=== PATIENT | female | born 1985 | race Caucasian/White ===

== ENCOUNTER 2019-09-24 08:29 | Emergency (ER) | payer BC, OTHER ==
[2019-09-24 09:20] LABS: Appearance,Urine Cloudy (Clear); Bacteria,Urine Few /hpf; Bilirubin,Urine Negative (Negative); Blood,Urine Large (Negative); Color,Urine Light Red; Glucose,Urine (UA) Negative (Negative); Ketones,Urine Negative (Negative); Leukocyte Esterase,Urine Moderate (Negative); Mucus,Urine Few /hpf; Nitrite,Urine Negative (Negative); Protein,Urine 1+ (Negative); RBC,Urine >182 /hpf (0-5); Specific Gravity,Urine 1.018 (1.001-1.035); Squamous Epithelial Cell,Urine 5 /hpf (0-4); WBC,Urine 14 /hpf (0-5)
--- NOTE | 2019-09-24 09:37 | ED ---
Female Urogenital HPI - General Chief complaint: Vaginal Bleeding Stated complaint: Possible miscarriage Time Seen by Provider: 09/24/19 08:43 Source: patient, RN notes reviewed Mode of arrival: ambulatory Limitations: no limitations - History of Present Illness Initial comments: 34-year-old female presents emergency Department with chief complaint of vaginal bleeding early . Patient states she found out she was within the last week states that she is A1 states that she believes that she is approximate 5 weeks along. She does not have a current [employer]. That she woke up with bleeding mild abdominal cramping denies any current nausea vomiting diarrhea constipation - Related Data Home Medications Medication Instructions Recorded Confirmed Multivitamins, Thera [Multivitamin 1 tab PO DAILY 10/28/16 10/29/16 (formulary)] Naproxen Sodium [Aleve] 220 mg PO Q12H PRN 10/28/16 10/29/16 Previous Rx's Medication Instructions Recorded QUEtiapine XR [SEROquel XR] 100 mg PO DAILY@1900 30 Days 11/01/16 tab.er.24h Venlafaxine HCl ER [Effexor XR] 75 mg PO DAILY 30 Days cap.er.24h 11/01/16 Allergies Allergy/AdvReac Type Severity Reaction Status Date / Time codeine Allergy Severe Itching Verified 09/24/19 08:37 latex Allergy Severe Itching Verified 09/24/19 08:37 Penicillins Allergy Severe Rash/Hives Verified 09/24/19 08:37 adhesive tape Allergy Itching Verified 09/24/19 08:37 Review of Systems ROS Statement: Those systems with pertinent positive or pertinent negative responses have been documented in the HPI. ROS Other: All systems not noted in ROS Statement are negative. Past Medical History Past Medical History: No Reported History History of Any Multi-Drug Resistant Organisms: None Reported Past Surgical History: Orthopedic Surgery Additional Past Surgical History / Comment(s): R ankle fracture, R wrist cyst removal, R wrist shattered Past Anesthesia/Blood Transfusion Reactions: Previous Problems w/ Anesthesia, Motion Sickness Additional Past Anesthesia/Blood Transfusion Reaction / Comment(s): Pt. states she had n & v after anesthesia. Past Psychological History: Depression Smoking Status: Current every day smoker Past Alcohol Use History: Occasional Past Drug Use History: Marijuana, Prescription Drug Abuse - Past Family History Father Family Medical History: Myocardial Infarction ([place]) General Exam Limitations: no limitations General appearance: alert, in no apparent distress Head exam: Present: atraumatic, normocephalic, normal inspection Eye exam: Present: normal appearance, PERRL, EOMI. Absent: scleral icterus, conjunctival injection, periorbital swelling ENT exam: Present: normal exam, normal oropharynx, mucous membranes moist, TM's normal bilaterally Neck exam: Present: normal inspection. Absent: tenderness, meningismus, lymphadenopathy Respiratory exam: Present: normal lung sounds bilaterally. Absent: respiratory distress, wheezes, rales, rhonchi, stridor Cardiovascular Exam: Present: regular rate, normal rhythm, normal heart sounds. Absent: systolic murmur, diastolic murmur, rubs, gallop, clicks GI/Abdominal exam: Present: soft, tenderness (Mild suprapubic), normal bowel sounds. Absent: distended, guarding, rebound, rigid Back exam: Absent: CVA tenderness (R), CVA tenderness (L) Neurological exam: Present: alert Skin exam: Present: warm, dry, intact, normal color. Absent: rash Course Vital Signs 09/24/19 08:34 Temperature 97.1 F L Pulse Rate 77 Respiratory 18 Rate Blood Pressure 112/64 O2 Sat by Pulse 98 Oximetry Medical Decision Making - Medical Decision Making Patient's hCG is negative this time, patient is currently having her menstrual cycle. There is no evidence of . Patient be discharged. - Lab Data Lab Results 09/24/19 09/24/19 09/24/19 Range/Units 08:55 08:55 08:55 HCG, Quant <2.4 mIU/mL Urine Color Light Red Urine Appearance Cloudy H (Clear) Urine pH 6.0 (5.0-8.0) Ur Specific [place] 1.018 (1.001-1.035) Urine Protein 1+ H (Negative) Urine Glucose (UA) Negative (Negative) Urine Ketones Negative (Negative) Urine Blood Large H (Negative) Urine Nitrite Negative (Negative) Urine Bilirubin Negative (Negative) Urine Urobilinogen 2.0 (<2.0) mg/dL Ur Leukocyte Esterase Moderate H (Negative) Urine RBC >182 H (0-5) /hpf Urine WBC 14 H (0-5) /hpf Ur Squamous Epith Cells 5 H (0-4) /hpf Urine Bacteria Few H (None) /hpf Urine Mucus Few H (None) /hpf Blood Type A Positive Blood Type Recheck No Previous Record Bld Type Recheck Status [facility] ONLY Disposition Clinical Impression: Menorrhagia, Menstruation Disposition: HOME SELF-CARE Condition: Stable Instructions (If sedation given, give patient instructions): Menorrhagia (ED) Additional Instructions: Please return to the Emergency Department if symptoms worsen or any other concerns. Is patient prescribed a controlled substance at d/c from ED?: No Referrals: None,Stated [Primary Care Provider] - 1-2 days Time of Disposition: 10:01
--- NOTE | 2019-09-24 09:50 | US ---
EXAMINATION TYPE: Transabdominal DATE OF EXAM: 09/24/2019 9:31 AM COMPARISON: NONE CLINICAL HISTORY: bleeding, pain. bleeding, positive teste x 2 days ago. EXAM PERFORMED: Transvaginal (TV) and Transabdominal (TA) EXAM MEASUREMENTS: GESTATIONAL AGE / DATING Dates by LMP: (4 weeks/0 days) EDC: 06/02/2020 Dates by Current Scan for: No IUP seen at this time MATERNAL ANATOMY Uterus: 8.9 x 4.4 x 3.7 cm Right Ovary: 2.9 x 1.5 x 1.4 cm Left Ovary: 3.2 x 1.9 x 1.3 cm Post CDS / Adnexa: no free fluid Presence of free fluid: no Presence of corpus luteal cyst: no Presence of subchorionic bleed: no GESTATION / SURVEY IUP: No IUP seen at this time Date of LMP: 08/27/2019, Beta HcG (if available): Not available at this time No GS, YS or CRL visualized at this time. IMPRESSION: No current intrauterine gestational sac, yolk sac nor pole. Endometrium does not ap pear thickened at this time. Correlate with serum beta hCG level. Early intrauterine , ectop ic or spontaneous are all within the differential given the positive kendal t and no current sonographic findings of intrauterine . Repeat ultrasound is recommended in 7 days.
[2019-09-24 10:28] VITALS: BP 124/76; PULSE 69; RESP 16; TEMP 97.8
== END 2019-09-24 10:28 | disposition home or self-care (01) ==
LOC: EC 08:29 → MERGE 08:29 → EC 10:28
DX: N92.0 Excessive and frequent menstruation with regular cycle (principal); Z32.02 Encounter for pregnancy test, result negative; F17.200 Nicotine dependence, unspecified, uncomplicated; Z88.0 Allergy status to penicillin; Z88.5 Allergy status to narcotic agent; Z91.040 Latex allergy status; Z91.048 Other nonmedicinal substance allergy status
CPT/HCPCS: 36415; 76801; 76817; 81001; 84702; 86900; 86901; 87086; 99284

== ENCOUNTER 2020-04-24 13:41 | Emergency (ER) | payer BC, OTHER ==
[2020-04-24 13:53] VITALS: BP 143/87; PULSE 114; RESP 16; TEMP 98.9
--- NOTE | 2020-04-24 14:15 | ED ---
General Adult HPI - General Chief complaint: Dental/Oral Stated complaint: tooth pain Time Seen by Provider: 04/24/20 14:03 Source: patient, RN notes reviewed Mode of arrival: ambulatory Limitations: no limitations - History of Present Illness Initial comments: 34-year-old female presents to the emergency department for a chief complaint of dental pain. Patient states she had a tooth extraction last Saturday. Patient states he did not remove the entire tooth. She went back last Saturday and patient states he still did not do a right. States it is causing her pain. States he prescribed her Percocet but the pharmacy cannot fill it. States that she is already on Augmentin. Patient is going back tomorrow but needs something to help with the pain tonight. She has been taking Motrin 800. Patient has no other complaints at this time including shortness of breath, chest pain, abdominal pain, nausea or vomiting, headache, or visual changes. - Related Data Home Medications Medication Instructions Recorded Confirmed Multivitamins, Thera [Multivitamin 1 tab PO DAILY 10/28/16 10/29/16 (formulary)] Naproxen Sodium [Aleve] 220 mg PO Q12H PRN 10/28/16 10/29/16 Previous Rx's Medication Instructions Recorded QUEtiapine XR [SEROquel XR] 100 mg PO DAILY@1900 30 Days 11/01/16 tab.er.24h Venlafaxine HCl ER [Effexor XR] 75 mg PO DAILY 30 Days cap.er.24h 11/01/16 HYDROcodone/APAP 5-325MG [[place] 1 tab PO Q6HR PRN #10 tab 04/24/20 5-325] Allergies Allergy/AdvReac Type Severity Reaction Status Date / Time codeine Allergy Severe Itching Verified 04/24/20 13:53 latex Allergy Severe Itching Verified 04/24/20 13:53 Penicillins Allergy Severe Rash/Hives Verified 04/24/20 13:53 adhesive tape Allergy Itching Verified 04/24/20 13:53 Review of Systems ROS Statement: Those systems with pertinent positive or pertinent negative responses have been documented in the HPI. ROS Other: All systems not noted in ROS Statement are negative. Past Medical History Past Medical History: No Reported History History of Any Multi-Drug Resistant Organisms: None Reported Past Surgical History: Orthopedic Surgery Additional Past Surgical History / Comment(s): R ankle fracture, R wrist cyst removal, R wrist shattered Past Anesthesia/Blood Transfusion Reactions: Previous Problems w/ Anesthesia, Motion Sickness Additional Past Anesthesia/Blood Transfusion Reaction / Comment(s): Pt. states she had n & v after anesthesia. Past Psychological History: No Psychological Hx Reported Smoking Status: Current every day smoker Past Alcohol Use History: Occasional Past Drug Use History: Marijuana, Prescription Drug Abuse - Past Family History Father Family Medical History: Myocardial Infarction ([place]) General Exam Limitations: no limitations General appearance: alert, in no apparent distress Head exam: Present: atraumatic, normocephalic, normal inspection Eye exam: Present: normal appearance, PERRL, EOMI. Absent: scleral icterus, conjunctival injection, periorbital swelling ENT exam: Present: normal exam, mucous membranes moist, TM's normal bilaterally, normal external ear exam. Absent: normal oropharynx (tooth extraction noted tooth 30, no evidence of abscess) Neck exam: Present: normal inspection, full ROM. Absent: tenderness, meningismus, lymphadenopathy Respiratory exam: Present: normal lung sounds bilaterally. Absent: respiratory distress, wheezes, rales, rhonchi, stridor Cardiovascular Exam: Present: regular rate, normal rhythm, normal heart sounds. Absent: systolic murmur, diastolic murmur, rubs, gallop, clicks GI/Abdominal exam: Present: soft, normal bowel sounds. Absent: distended, tenderness, guarding, rebound, rigid Neurological exam: Present: alert Course Vital Signs 04/24/20 13:49 Temperature 98.9 F Pulse Rate 114 H Respiratory 16 Rate Blood Pressure 143/87 O2 Sat by Pulse 98 Oximetry Medical Decision Making - Medical Decision Making patient does have toothache section noted in right lower quadrant of mouth. I do not see any abscesses or evidence of infection. shows patient has not had Percocet filled. At this time patient will be written a prescription for [place]. She will follow-up with her dentist as soon as possible. She will return if she has any worsening symptoms. Disposition Clinical Impression: Tooth pain Disposition: HOME SELF-CARE Condition: Good Instructions (If sedation given, give patient instructions): Toothache (ED) Additional Instructions: please continue to take Motrin for pain. If pain is severe take [place]. Please follow-up with your dentist tomorrow. Return to the emergency room if you have any worsening symptoms. Prescriptions: HYDROcodone/APAP 5-325MG [[place] 5-325] 1 tab PO Q6HR PRN #10 tab PRN Reason: Pain Is patient prescribed a controlled substance at d/c from ED?: Yes When asked, does pt state using other controlled substances?: No If prescribed controlled substance>3 days was MAPS reviewed?: Prescribed <3 Days If opioid is for acute pain is fill amount 7 days or less?: Yes If Rx opioid, was Start Talking consent form obtained?: Yes Referrals: Ethan Castaneda MD [REFERRING] - 1-2 days Time of Disposition: 14:14
== END 2020-04-24 14:27 | disposition home or self-care (01) ==
LOC: EC 13:41
DX: K08.89 Other specified disorders of teeth and supporting structures (principal); F17.200 Nicotine dependence, unspecified, uncomplicated; Z88.5 Allergy status to narcotic agent; Z91.040 Latex allergy status; Z88.0 Allergy status to penicillin; Z91.048 Other nonmedicinal substance allergy status
CPT/HCPCS: 99282

== ENCOUNTER 2020-11-29 21:26 | Emergency (ER) | payer BC, OTHER ==
[2020-11-29] MEDS ORDERED: DIPH,PERTUS(ACELL)TETVAC-LF 0.5 ML VIAL IM ONE (23:11)
[2020-11-29] MEDS ORDERED: TOPICAL SKIN ADHESIVE 1 EACH AMP TOPICAL ONE (23:12)
--- NOTE | 2020-11-29 23:33 | ED ---
Wound/Laceration HPI - General Chief Complaint: Wound/Laceration Stated Complaint: Finger Lac Time Seen by Provider: 11/29/20 22:42 Source: patient Mode of arrival: ambulatory Limitations: no limitations - History of Present Illness Initial Comments: 35-year-old female presented for left index finger laceration. Patient states that she cut it when she was attempting to open packaging with scissor and slipped. She states she did not really look at the laceration applied pressure because it was bleeding and presented to the ER. Patient states she is unsure of last tetanus. She denies any limitation to range of motion of the digit. She has a decreased strength. Patient denies any uncontrolled bleeding remaining review of systems negative upon arrival patient appears well nontoxic distress. - Related Data Home Medications Medication Instructions Recorded Confirmed Multivitamins, Thera [Multivitamin 1 tab PO DAILY 10/28/16 10/29/16 (formulary)] Naproxen Sodium [Aleve] 220 mg PO Q12H PRN 10/28/16 10/29/16 Previous Rx's Medication Instructions Recorded QUEtiapine XR [SEROquel XR] 100 mg PO DAILY@1900 30 Days 11/01/16 tab.er.24h Venlafaxine HCl ER [Effexor XR] 75 mg PO DAILY 30 Days cap.er.24h 11/01/16 HYDROcodone/APAP 5-325MG [[place] 1 tab PO Q6HR PRN #10 tab 04/24/20 5-325] Allergies Allergy/AdvReac Type Severity Reaction Status Date / Time codeine Allergy Severe Itching Verified 11/29/20 21:32 latex Allergy Severe Itching Verified 11/29/20 21:32 Penicillins Allergy Severe Rash/Hives Verified 11/29/20 21:32 adhesive tape Allergy Itching Verified 11/29/20 21:32 Review of Systems ROS Statement: Those systems with pertinent positive or pertinent negative responses have been documented in the HPI. ROS Other: All systems not noted in ROS Statement are negative. Past Medical History Past Medical History: No Reported History History of Any Multi-Drug Resistant Organisms: None Reported Past Surgical History: Orthopedic Surgery Additional Past Surgical History / Comment(s): R ankle fracture, R wrist cyst removal, R wrist shattered Past Anesthesia/Blood Transfusion Reactions: Previous Problems w/ Anesthesia, Motion Sickness Additional Past Anesthesia/Blood Transfusion Reaction / Comment(s): Pt. states she had n & v after anesthesia. Past Psychological History: Depression Smoking Status: Current every day smoker Past Alcohol Use History: Occasional Past Drug Use History: Marijuana, Prescription Drug Abuse - Past Family History Father Family Medical History: Myocardial Infarction ([place]) General Exam - General Exam Comments Initial Comments: General: The patient is awake and alert, in no distress, and does not appear acutely ill. Eye: Pupils are equal, round and reactive to light, extra-ocular movements are intact. No nystagmus. There is normal conjunctiva bilaterally. No signs of icterus. Musculoskeletal: Normal ROM, no tenderness. Strength 5/5 MCP DIP and PIP joint of affected digit. Sensation intact. Radial and DP pulses equal bilaterally 2+. Neurological: A&O x 3. CN II-XII intact grossly, There are no obvious motor or sensory deficits. Coordination appears grossly intact. Speech is normal. Skin: Skin is warm and dry and no rashes. <1cm laceration very superifical and not gapin. Psychiatric: Cooperative, appropriate mood & affect, normal judgment. Limitations: no limitations Course Vital Signs 11/29/20 11/29/20 21:32 23:40 Temperature 98.2 F 97.9 F Pulse Rate 72 78 Respiratory 18 16 Rate Blood Pressure 123/80 118/79 O2 Sat by Pulse 96 97 Oximetry Medical Decision Making - Medical Decision Making Very superficial laceration less than 1 cm. No exposure of underlying structures no limitations of range of motion or strength of the digit. Except was applied after cleansing and patient was discharged with return parameters for signs of infection. Tetanus was updated. Disposition Clinical Impression: Laceration of left index finger Disposition: HOME SELF-CARE Condition: Good Instructions (If sedation given, give patient instructions): Skin Adhesive Care (ED) Additional Instructions: Please use medication as discussed. Please follow-up with family doctor in the next 2 days. Watch for any redness, swelling, limitations in range of motion of digit. Please return to emergency room if the symptoms increase or worsen or for any other concerns. Is patient prescribed a controlled substance at d/c from ED?: No Referrals: None,Stated [Primary Care Provider] - 1-2 days Time of Disposition: 23:33
[2020-11-29 23:54] VITALS: BP 118/79; PULSE 78; RESP 16; TEMP 97.9
== END 2020-11-29 23:40 | disposition home or self-care (01) ==
LOC: EC 21:26
DX: S61.211A Laceration without foreign body of left index finger without damage to nail, initial encounter (principal); F32.9 Major depressive disorder, single episode, unspecified; F17.200 Nicotine dependence, unspecified, uncomplicated; F12.90 Cannabis use, unspecified, uncomplicated; Z88.0 Allergy status to penicillin; W27.2XXA Contact with scissors, initial encounter
CPT/HCPCS: 90471; 90715; 99282

== ENCOUNTER 2023-07-23 14:58 | Emergency (ER) | payer BC, OTHER ==
[2023-07-23 15:21] VITALS: RESP 18; TEMP 98.4
[2023-07-23] MEDS ORDERED: PANTOPRAZOLE 40 MG/10 ML VIAL IVP STA (15:50)
[2023-07-23] MEDS ORDERED: SODIUM CHLORIDE 0.9% 500 ML 500 ML IV STA (15:50)
[2023-07-23] MEDS ORDERED: SODIUM CHLORIDE 0.9% 1,000 ML IV STA ×2 (15:50)
[2023-07-23] MEDS ORDERED: ONDANSETRON 4 MG/2 ML VIAL IVP STA (15:50)
[2023-07-23] MEDS ORDERED: MORPHINE SULFATE 4 MG/ML SYRINGE IVP STA (15:50)
--- NOTE | 2023-07-23 15:54 | ED ---
Nausea/Vomiting/Diarrhea HPI - General Chief complaint: Nausea/Vomiting/Diarrhea Stated complaint: N/V/D Time Seen by Provider: 07/23/23 15:26 Source: patient, RN notes reviewed, old records reviewed Mode of arrival: ambulatory Limitations: no limitations - History of Present Illness Initial comments: This is a 38-year-old female to the ER today. She presents today for evaluation regards to abdominal pain persistent abdominal pain despite multiple evaluations with abdominal pain including recent ER visit at nearby hospital. Patient states she had imaging or lab tests but nausea vomiting and pain or persistent especially for the last 2-3 days. Patient has no fever. No diarrhea bleeds she is suffering from ulcer and she has had this in the past with history of alcoholism MD complaint: nausea, vomiting, abdominal pain -: days(s) Description of Vomiting: food contents Associated Abdominal Pain: Yes Location: periumbilical, epigastric Severity: moderate Severity scale (1-10): 4 Quality: stabbing Consistency: constant Improves with: none Worsens with: none Associated Symptoms: nausea/vomiting - Related Data Home Medications Medication Instructions Recorded Confirmed Multivitamins, Thera [Multivitamin 1 tab PO DAILY 10/28/16 10/29/16 (formulary)] Naproxen Sodium [Aleve] 220 mg PO Q12H PRN 10/28/16 10/29/16 Previous Rx's Medication Instructions Recorded QUEtiapine XR [SEROquel XR] 100 mg PO DAILY@1900 30 Days 11/01/16 tab.er.24h Venlafaxine HCl ER [Effexor XR] 75 mg PO DAILY 30 Days cap.er.24h 11/01/16 HYDROcodone/APAP 5-325MG [[place]oring 1 tab PO Q6HR PRN #10 tab 04/24/20 5-325] Clarithromycin [Biaxin] 500 mg PO BID 10 Days #20 tab 07/23/23 Pantoprazole [Protonix] 40 mg PO DAILY #30 tab 07/23/23 metroNIDAZOLE [Flagyl] 500 mg PO BID #20 tab 07/23/23 Allergies Allergy/AdvReac Type Severity Reaction Status Date / Time codeine Allergy Severe Itching Verified 07/23/23 15:07 latex Allergy Severe Itching Verified 07/23/23 15:07 Penicillins Allergy Severe Rash/Hives Verified 07/23/23 15:07 adhesive tape Allergy Itching Verified 07/23/23 15:07 Review of Systems ROS Statement: Those systems with pertinent positive or pertinent negative responses have been documented in the HPI. ROS Other: All systems not noted in ROS Statement are negative. Past Medical History Past Medical History: No Reported History History of Any Multi-Drug Resistant Organisms: None Reported Past Surgical History: Orthopedic Surgery Additional Past Surgical History / Comment(s): R ankle fracture, R wrist cyst removal, R wrist shattered Past Anesthesia/Blood Transfusion Reactions: Previous Problems w/ Anesthesia, Motion Sickness Additional Past Anesthesia/Blood Transfusion Reaction / Comment(s): Pt. states she had n & v after anesthesia. Past Psychological History: Depression Smoking Status: Current every day smoker, Vaper Past Alcohol Use History: Occasional Past Drug Use History: Marijuana, Prescription Drug Abuse - Past Family History Father Family Medical History: Myocardial Infarction (ID) General Exam Limitations: no limitations General appearance: alert, in no apparent distress Head exam: Present: atraumatic, normocephalic, normal inspection Eye exam: Present: normal appearance, PERRL, EOMI. Absent: scleral icterus, conjunctival injection, periorbital swelling ENT exam: Present: normal exam, mucous membranes moist Neck exam: Present: normal inspection. Absent: tenderness, meningismus, lymphadenopathy Respiratory exam: Present: normal lung sounds bilaterally. Absent: respiratory distress, wheezes, rales, rhonchi, stridor Cardiovascular Exam: Present: regular rate, normal rhythm, normal heart sounds. Absent: systolic murmur, diastolic murmur, rubs, gallop, clicks GI/Abdominal exam: Present: soft, normal bowel sounds. Absent: distended, tenderness, guarding, rebound, rigid Extremities exam: Present: normal inspection, full ROM, normal capillary refill. Absent: tenderness, pedal edema, joint swelling, calf tenderness Back exam: Present: normal inspection Neurological exam: Present: alert, oriented X3, CN II-XII intact Psychiatric exam: Present: normal affect, normal mood Skin exam: Present: warm, dry, intact, normal color. Absent: rash Course Vital Signs 07/23/23 07/23/23 15:02 19:11 Temperature 98.4 F Pulse Rate 74 53 L Respiratory 18 18 Rate Blood Pressure 145/93 137/82 O2 Sat by Pulse 99 97 Oximetry - Reevaluation(s) Reevaluation #1: 07/23/23 18:38 Medical records reviewed Reevaluation #2: 07/23/23 18:38 Symptoms are dramatically improved here in the Reevaluation #3: 07/23/23 18:38 Patient informed results questions answered Reevaluation #4: 07/23/23 18:38 Was pt. sent in by a medical professional or institution (CHEYANNE Jaeger, [employer]AL[employer] ASSURANCE PRACTICE MANAGER, urgent care, hospital, or penitentiary...) When possible be specific @ -no Did you speak to anyone other than the patient for history (EMS, parent, family, police, friend...)? What history was obtained from this source @ -no Did you review nursing and triage notes (agree or disagree)? Why? @ -agree Are old charts reviewed (outside hosp., previous admission, EMS record, old EKG, old radiological studies, urgent care reports/EKG's, penitentiary records)? Report findings @ -yes Differential Diagnosis (chest pain, altered mental status, abdominal pain women, abdominal pain men, vaginal bleeding, weakness, fever, dyspnea, syncope, headache, dizziness, GI bleed, back pain, seizure, CVA, palpatations, mental health, musculoskeletal)? @ -prior EKG interpreted by me (3pts min.). @ -no X-rays interpreted by me (1pt min.). @ -no CT interpreted by me (1pt min.). @ -no U/S interpreted by me (1pt. min.). @ -no What testing was considered but not performed or refused? (CT, X-rays, U/S, labs)? Why? @ -none What meds were considered but not given or refused? Why? @ -none Did you discuss the management of the patient with other professionals (professionals i.e. CHEYANNE Jaeger, QUALITY ASSURANCE PRACTICE MANAGER, lab, RT, psych nurse, social science professor, radio reporter, teacher, forest officer, case mgr)? Give summary @ -no Was smoking cessation discussed for >3mins.? @ -no Was critical care preformed (if so, how long)? @ -no Were there social determinants of health that impacted care today? How? (Homelessness, low income, unemployed, alcoholism, drug addiction, transportation, low edu. Level, literacy, decrease access to med. care, long term, rehab)? @ -none Was there de-escalation of care discussed even if they declined (Discuss DNR or withdrawal of care, Hospice)? DNR status @ -no What co-morbidities impacted this encounter? (DM, HTN, Smoking, COPD, CAD, Cancer, CVA, ARF, Chemo, Hep., AIDS, mental health diagnosis, sleep apnea, morbid obesity)? @ -none Was patient admitted / discharged? Hospital course, mention meds given and route, prescriptions, significant lab abnormalities, going to OR and other pert inent info. @ - 38 female to the emergency department today with gastritis, patient symptoms improved here in the ER will give supportive care and can be discharged home Discharge Undiagnosed new problem with uncertain prognosis? @ -no Drug Therapy requiring intensive monitoring for toxicity (Heparin, Nitro, Insulin, Cardizem)? @ -no Were any procedures done? @ -no Diagnosis/symptom? @ -3 times a day ration with abdominal pain Acute, or Chronic, or Acute on Chronic? @ -Acute Uncomplicated (without systemic symptoms) or Complicated (systemic symptoms)? @ -Complicated Side effects of treatment? @ -no Exacerbation, Progression, or Severe Exacerbation? @ -exacerbation Poses a threat to life or bodily function? How? (Chest pain, USA, ID, pneumonia, PE, COPD, DKA, ARF, appy, cholecystitis, CVA, Diverticulitis, Homicidal, Suicidal, threat to staff... and all critical care pts) @ -no Reevaluation #5: 07/23/23 18:38 Differential Abdominal Pain Women: Appendicitis, Cholecystitis, diverticulosis, ischemic bowel, pancreatitis, hepatitis, UTI, gastroenteritis, AAA, incarcerated hernia, bowel obstruction, constipation, inflammatory bowel, hepatitis, peptic ulcer disease, splenic infarction, perforated viscus, vulvitis, ovarian torsion, PID, kidney stone, placenta abruption, this is not meant to be an all-inclusive list Medical Decision Making - Medical Decision Making 38 female to the emergency department today with gastritis, patient symptoms improved here in the ER will give supportive care and can be discharged home - Lab Data Result diagrams: 07/23/23 16:40 07/23/23 16:40 Lab Results 07/23/23 07/23/23 Range/Units 16:40 16:40 WBC 13.4 H (3.8-10.6) k/uL RBC 5.03 (3.80-5.40) m/uL Hgb 15.7 (11.4-16.0) gm/dL Hct 46.4 H (34.0-46.0) % MCV 92.3 (80.0-100.0) fL MCH 31.3 (25.0-35.0) pg MCHC 33.9 (31.0-37.0) g/dL RDW 11.8 (11.5-15.5) % Plt Count 266 (150-450) k/uL MPV 9.0 Neutrophils % 87 % Lymphocytes % 9 % Monocytes % 3 % Eosinophils % 1 % Basophils % 1 % Neutrophils # 11.7 H (1.3-7.7) k/uL Lymphocytes # 1.1 (1.0-4.8) k/uL Monocytes # 0.4 (0-1.0) k/uL Eosinophils # 0.1 (0-0.7) k/uL Basophils # 0.1 (0-0.2) k/uL Sodium 139 (137-145) mmol/L Potassium 4.0 (3.5-5.1) mmol/L Chloride 102 (98-107) mmol/L Carbon Dioxide 24 (22-30) mmol/L Anion Gap 13 mmol/L BUN 20 H (7-17) mg/dL Creatinine 0.64 (0.52-1.04) mg/dL Est GFR (CKD-EPI)AfAm >90 (>60 ml/min/1.73 sqM) Est GFR (CKD-EPI)NonAf >90 (>60 ml/min/1.73 sqM) Glucose 109 H (74-99) mg/dL Calcium 10.3 H (8.4-10.2) mg/dL Total Bilirubin 0.6 (0.2-1.3) mg/dL AST 20 (14-36) U/L ALT 24 (4-34) U/L Alkaline Phosphatase 63 (38-126) U/L Total Protein 8.3 H (6.3-8.2) g/dL Albumin 4.9 (3.5-5.0) g/dL Amylase 47 (30-110) U/L Lipase 44 (23-300) U/L Disposition Clinical Impression: Dehydration, Abdominal pain, Gastritis Disposition: HOME SELF-CARE Instructions (If sedation given, give patient instructions): Gastritis (ED), Helicobacter Pylori (ED) Prescriptions: Clarithromycin [Biaxin] 500 mg PO BID 10 Days #20 tab metroNIDAZOLE [Flagyl] 500 mg PO BID #20 tab Pantoprazole [Protonix] 40 mg PO DAILY #30 tab Is patient prescribed a controlled substance at d/c from ED?: No Referrals: None,Stated [Primary Care Provider] - 1-2 days Time of Disposition: 18:00
[2023-07-23 17:27] LABS: Basophils # (A) 0.1 k/uL (0-0.2); Basophils % (A) 1 %; Eosinophils # (A) 0.1 k/uL (0-0.7); Eosinophils % (A) 1 %; HCT 46.4 % (34.0-46.0); HGB 15.7 gm/dL (11.4-16.0); Lymphocytes # (A) 1.1 k/uL (1.0-4.8); Lymphocytes % (A) 9 %; MCH 31.3 pg (25.0-35.0); MCHC 33.9 g/dL (31.0-37.0); MCV 92.3 fL (80.0-100.0); Monocytes # (A) 0.4 k/uL (0-1.0); Monocytes % (A) 3 %; Neutrophils # (A) 11.7 k/uL (1.3-7.7); Neutrophils % (A) 87 %; Platelet Count 266 k/uL (150-450); RBC 5.03 m/uL (3.80-5.40); RDW 11.8 % (11.5-15.5); WBC 13.4 k/uL (3.8-10.6)
[2023-07-23 17:55] LABS: ALT 24 U/L (4-34); AST 20 U/L (14-36); African American GFR (CKD) >90 (>60 ml/min/1.73 sqM); Albumin 4.9 g/dL (3.5-5.0); Alkaline Phosphatase 63 U/L (38-126); Amylase 47 U/L (30-110); Anion Gap 13 mmol/L; Blood Urea Nitrogen 20 mg/dL (7-17); Calcium 10.3 mg/dL (8.4-10.2); Carbon Dioxide 24 mmol/L (22-30); Chloride 102 mmol/L (98-107); Glucose 109 mg/dL (74-99); Lipase 44 U/L (23-300); Non-African American GFR(CKD) >90 (>60 ml/min/1.73 sqM); Sodium 139 mmol/L (137-145); Total Bilirubin 0.6 mg/dL (0.2-1.3); Total Protein 8.3 g/dL (6.3-8.2)
[2023-07-23] MEDS ORDERED: CLARITHROMYCIN 500 MG TAB PO STA (18:07)
[2023-07-23] MEDS ORDERED: MAG HYDROX/AL HYDROX/SIMETH 30 ML, HYOSCYAMINE ELIXIR 10 ML, LIDOCAINE VISCOUS 2% 10 ML PO STA ×3 (18:07)
[2023-07-23] MEDS ORDERED: metroNIDAZOLE 500 MG TAB PO STA (18:09)
[2023-07-23] MEDS ORDERED: PROCHLORPERAZINE INJ 10 MG/2 ML VIAL IVP STA (18:33)
[2023-07-23 19:14] VITALS: BP 137/82; PULSE 53
== END 2023-07-23 19:12 | disposition home or self-care (01) ==
LOC: EC 14:58
DX: K29.70 Gastritis, unspecified, without bleeding (principal); E86.0 Dehydration; F17.290 Nicotine dependence, other tobacco product, uncomplicated; F12.90 Cannabis use, unspecified, uncomplicated; F15.10 Other stimulant abuse, uncomplicated; Z88.0 Allergy status to penicillin; Z91.040 Latex allergy status; Z88.5 Allergy status to narcotic agent; Z91.048 Other nonmedicinal substance allergy status
CPT/HCPCS: 36415; 80053; 82150; 83690; 85025; 99284; 96374; 96375 ×3; 96361; J2270; J0780; J2405; C9113

== ENCOUNTER 2023-08-17 07:49 | Emergency (ER) | payer BC, OTHER ==
[2023-08-17] MEDS ORDERED: ONDANSETRON 4 MG/2 ML VIAL IVP STA (08:11)
[2023-08-17] MEDS ORDERED: FAMOTIDINE 20 MG/2 ML VIAL IV STA (08:11)
[2023-08-17] MEDS ORDERED: HYDROmorphone 0.5 MG/0.5 ML SYRINGE IVP STA ×2 (08:11→10:39)
[2023-08-17] MEDS ORDERED: SODIUM CHLORIDE 0.9% 1,000 ML IV STA (08:11)
--- NOTE | 2023-08-17 08:14 | ED ---
General Adult HPI - General Chief complaint: Nausea/Vomiting/Diarrhea Stated complaint: nausea abd pain Time Seen by Provider: 08/17/23 08:02 Source: patient, RN notes reviewed, old records reviewed Mode of arrival: wheelchair Limitations: no limitations - History of Present Illness Initial comments: 38-year-old female with chief complaint of abdominal pain nausea vomiting and diarrhea. Patient was recently seen for similar symptoms, treated for H. p ylori. She states her symptoms did initially improved but then returned again within the past 24 hours. Her pain is in the epigastrium. She had no prior abdominal surgeries. She does admit to smoking marijuana daily. She has prior history of alcohol abuse but is not currently drinking. - Related Data Home Medications Medication Instructions Recorded Confirmed Multivitamins, Thera [Multivitamin 1 tab PO DAILY 10/28/16 10/29/16 (formulary)] Naproxen Sodium [Aleve] 220 mg PO Q12H PRN 10/28/16 10/29/16 Previous Rx's Medication Instructions Recorded QUEtiapine XR [SEROquel XR] 100 mg PO DAILY@1900 30 Days 11/01/16 tab.er.24h Venlafaxine HCl ER [Effexor XR] 75 mg PO DAILY 30 Days cap.er.24h 11/01/16 HYDROcodone/APAP 5-325MG [[place] 1 tab PO Q6HR PRN #10 tab 04/24/20 5-325] Clarithromycin [Biaxin] 500 mg PO BID 10 Days #20 tab 07/23/23 Pantoprazole [Protonix] 40 mg PO DAILY #30 tab 07/23/23 metroNIDAZOLE [Flagyl] 500 mg PO BID #20 tab 07/23/23 Metoclopramide [Reglan] 5 mg PO QID PRN #12 tab 08/17/23 Allergies Allergy/AdvReac Type Severity Reaction Status Date / Time codeine Allergy Severe Itching Verified 08/17/23 08:01 latex Allergy Severe Itching Verified 08/17/23 08:01 Penicillins Allergy Severe Rash/Hives Verified 08/17/23 08:01 adhesive tape Allergy Itching Verified 08/17/23 08:01 Review of Systems ROS Statement: Those systems with pertinent positive or pertinent negative responses have been documented in the HPI. ROS Other: All systems not noted in ROS Statement are negative. Past Medical History Past Medical History: No Reported History History of Any Multi-Drug Resistant Organisms: None Reported Past Surgical History: Orthopedic Surgery Additional Past Surgical History / Comment(s): R ankle fracture, R wrist cyst removal, R wrist shattered Past Anesthesia/Blood Transfusion Reactions: Previous Problems w/ Anesthesia, Motion Sickness Additional Past Anesthesia/Blood Transfusion Reaction / Comment(s): Pt. states she had n & v after anesthesia. Past Psychological History: Depression Smoking Status: Current every day smoker, Vaper Past Alcohol Use History: Occasional Past Drug Use History: Marijuana, Prescription Drug Abuse - Past Family History Father Family Medical History: Myocardial Infarction ([place]) General Exam Limitations: no limitations General appearance: alert, in no apparent distress Head exam: Present: atraumatic, normocephalic Eye exam: Present: normal appearance, PERRL ENT exam: Present: normal exam Neck exam: Present: normal inspection. Absent: tenderness, meningismus Respiratory exam: Present: normal lung sounds bilaterally. Absent: respiratory distress, wheezes Cardiovascular Exam: Present: regular rate, normal rhythm GI/Abdominal exam: Present: soft, tenderness. Absent: distended, guarding, rebound, rigid Neurological exam: Present: alert, oriented X3, CN II-XII intact. Absent: motor sensory deficit Psychiatric exam: Present: anxious Skin exam: Present: warm, dry, intact. Absent: cyanosis, diaphoretic Course Vital Signs 08/17/23 07:58 Temperature 97.7 F Pulse Rate 77 Respiratory 18 Rate Blood Pressure 128/85 O2 Sat by Pulse 99 Oximetry Medical Decision Making - Medical Decision Making Was pt. sent in by a medical professional or institution (, PA, MICROSOFT OFFICE INSTRUCTOR, urgent care, hospital, or correction...) When possible be specific @ -No Did you speak to anyone other than the patient for history (EMS, parent, family, police, friend...)? What history was obtained from this source @ -No Did you review nursing and triage notes (agree or disagree)? Why? @ -I reviewed and agree with nursing and triage notes Were old charts reviewed (outside hosp., previous admission, EMS record, old EKG, old radiological studies, urgent care reports/EKG's, correction records)? Report findings @ -No old charts were reviewed Differential Diagnosis (chest pain, altered mental status, abdominal pain women, abdominal pain men, vaginal bleeding, weakness, fever, dyspnea, syncope, headache, dizziness, GI bleed, back pain, seizure, CVA, palpatations, mental health, musculoskeletal)? @ Differential Abdominal Pain Women: Appendicitis, Cholecystitis, diverticulosis, ischemic bowel, pancreatitis, hepatitis, UTI, gastroenteritis, AAA, incarcerated hernia, bowel obstruction, constipation, inflammatory bowel, hepatitis, peptic ulcer disease, splenic infarction, perforated viscus, vulvitis, ovarian torsion, PID, kidney stone, placenta abruption, this is not meant to be an all-inclusive list EKG interpreted by me (3pts min.). @ -As above X-rays interpreted by me (1pt min.). @ -None done CT interpreted by me (1pt min.). @ -None done U/S interpreted by me (1pt. min.). @Ultrasound of the right upper quadrant negative for acute cholecystitis or any acute findings. What testing was considered but not performed or refused? (CT, X-rays, U/S, labs)? Why? @ -None What meds were considered but not given or refused? Why? @ -None Did you discuss the management of the patient with other professionals (professionals i.e. , PA, MICROSOFT OFFICE INSTRUCTOR, lab, RT, psych nurse, high school social science teacher, avionics technician, teacher, sergeant of officers, piano case maker)? Give summary @ -No Was smoking cessation discussed for >3mins.? @ -No Was critical care preformed (if so, how long)? @ -No Were there social determinants of health that impacted care today? How? (Homelessness, low income, unemployed, alcoholism, drug addiction, transportation, low edu. Level, literacy, decrease access to med. care, correction, rehab)? @ -No Was there de-escalation of care discussed even if they declined (Discuss DNR or withdrawal of care, Hospice)? DNR status @ -No What co-morbidities impacted this encounter? (DM, HTN, Smoking, COPD, CAD, Cancer, CVA, ARF, Chemo, Hep., AIDS, mental health diagnosis, sleep apnea, mo rbid obesity)? @ -Marijuana use Was patient admitted / discharged? Hospital course, mention meds given and route, prescriptions, significant lab abnormalities, going to OR and other pertinent info. @ -[38-year-old female with recurrent episodes of abdominal pain nausea vomiting. Patient is a daily marijuana smoker. She's had multiple visits both at this institution and at outside hospitals with similar symptoms. She states she had a CAT scan performed which she reports as negative. She has relatively normal testing today and mild dehydration and mild leukocytosis but otherwise unremarkable. Patient given symptomatic treatment and IV fluids with some improvement. She is instructed to abstain from marijuana and see if this impro ves her symptoms. She will follow-up with her primary care provider. Undiagnosed new problem with uncertain prognosis? @ -No Drug Therapy requiring intensive monitoring for toxicity (Heparin, Nitro, Insulin, Cardizem)? @ -No Were any procedures done? @ -No Diagnosis/symptom? @Abdominal pain, nausea vomiting Acute, or Chronic, or Acute on Chronic? @Acute on chronic Uncomplicated (without systemic symptoms) or Complicated (systemic symptoms)? @ -default Side effects of treatment? @ -No Exacerbation, Progression, or Severe Exacerbation? @ -[No] Poses a threat to life or bodily function? How? (Chest pain, [place], [place], pneumonia, PE, COPD, DKA, ARF, appy, cholecystitis, CVA, Diverticulitis, Homicidal, Suicidal, threat to staff... and all critical care pts) @ -Low risk at this time - Lab Data Result diagrams: 08/17/23 08:26 08/17/23 09:10 Lab Results 08/17/23 08/17/23 08/17/23 Range/Units 08:26 08:26 08:26 WBC 13.7 H (3.8-10.6) k/uL RBC 4.37 (3.80-5.40) m/uL Hgb 13.9 (11.4-16.0) gm/dL Hct 40.9 (34.0-46.0) % MCV 93.6 (80.0-100.0) fL MCH 31.8 (25.0-35.0) pg MCHC 34.0 (31.0-37.0) g/dL RDW 12.2 (11.5-15.5) % Plt Count 258 (150-450) k/uL MPV 9.1 Neutrophils % 84 % Lymphocytes % 10 % Monocytes % 4 % Eosinophils % 1 % Basophils % 0 % Neutrophils # 11.5 H (1.3-7.7) k/uL Lymphocytes # 1.4 (1.0-4.8) k/uL Monocytes # 0.6 (0-1.0) k/uL Eosinophils # 0.2 (0-0.7) k/uL Basophils # 0.0 (0-0.2) k/uL PT (10.0-12.5) sec INR (<1.2) APTT (22.0-30.0) sec Sodium (137-145) mmol/L Potassium (3.5-5.1) mmol/L Chloride (98-107) mmol/L Carbon Dioxide (22-30) mmol/L Anion Gap mmol/L BUN (7-17) mg/dL Creatinine (0.52-1.04) mg/dL Est GFR (CKD-EPI)AfAm (>60 ml/min/1.73 sqM) Est GFR (CKD-EPI)NonAf (>60 ml/min/1.73 sqM) Glucose (74-99) mg/dL Lactic Ac Sepsis Rflx Plasma Lactic Acid Jamal (0.7-2.0) mmol/L Calcium (8.4-10.2) mg/dL Total Bilirubin (0.2-1.3) mg/dL AST (14-36) U/L ALT (4-34) U/L Alkaline Phosphatase (38-126) U/L Total Protein (6.3-8.2) g/dL Albumin (3.5-5.0) g/dL Amylase (30-110) U/L Lipase (23-300) U/L Urine Color Yellow Urine Appearance Clear (Clear) Urine pH 8.5 H (5.0-8.0) Ur Specific [place] 1.005 (1.001-1.035) Urine Protein Negative (Negative) Urine Glucose (UA) Negative (Negative) Urine Ketones 2+ H (Negative) Urine Blood Negative (Negative) Urine Nitrite Negative (Negative) Urine Bilirubin Negative (Negative) Urine Urobilinogen <2.0 (<2.0) mg/dL Ur Leukocyte Esterase Negative (Negative) Urine HCG, Qual Not Detected (Not Detectd) Urine Opiates Screen (NotDetected) Ur Oxycodone Screen (NotDetected) Urine Methadone Screen (NotDetected) Ur Propoxyphene Screen (NotDetected) Ur Barbiturates Screen (NotDetected) U Tricyclic Antidepress (NotDetected) Ur Phencyclidine Scrn (NotDetected) Ur Amphetamines Screen (NotDetected) U Methamphetamines Scrn (NotDetected) U Benzodiazepines Scrn (NotDetected) Urine Cocaine Screen (NotDetected) U Marijuana (THC) Screen (NotDetected) 08/17/23 08/17/23 08/17/23 Range/Units 08:26 09:02 09:10 WBC (3.8-10.6) k/uL RBC (3.80-5.40) m/uL Hgb (11.4-16.0) gm/dL Hct (34.0-46.0) % MCV (80.0-100.0) fL MCH (25.0-35.0) pg MCHC (31.0-37.0) g/dL RDW (11.5-15.5) % Plt Count (150-450) k/uL MPV Neutrophils % % Lymphocytes % % Monocytes % % Eosinophils % % Basophils % % Neutrophils # (1.3-7.7) k/uL Lymphocytes # (1.0-4.8) k/uL Monocytes # (0-1.0) k/uL Eosinophils # (0-0.7) k/uL Basophils # (0-0.2) k/uL PT 10.4 (10.0-12.5) sec INR 0.9 (<1.2) APTT 21.2 L (22.0-30.0) sec Sodium (137-145) mmol/L Potassium (3.5-5.1) mmol/L Chloride (98-107) mmol/L Carbon Dioxide (22-30) mmol/L Anion Gap mmol/L BUN (7-17) mg/dL Creatinine (0.52-1.04) mg/dL Est GFR (CKD-EPI)AfAm (>60 ml/min/1.73 sqM) Est GFR (CKD-EPI)NonAf (>60 ml/min/1.73 sqM) Glucose (74-99) mg/dL Lactic Ac Sepsis Rflx Y Plasma Lactic Acid Jamal 2.9 H* (0.7-2.0) mmol/L Calcium (8.4-10.2) mg/dL Total Bilirubin (0.2-1.3) mg/dL AST (14-36) U/L ALT (4-34) U/L Alkaline Phosphatase (38-126) U/L Total Protein (6.3-8.2) g/dL Albumin (3.5-5.0) g/dL Amylase (30-110) U/L Lipase (23-300) U/L Urine Color Urine Appearance (Clear) Urine pH (5.0-8.0) Ur Specific [place] (1.001-1.035) Urine Protein (Negative) Urine Glucose (UA) (Negative) Urine Ketones (Negative) Urine Blood (Negative) Urine Nitrite (Negative) Urine Bilirubin (Negative) Urine Urobilinogen (<2.0) mg/dL Ur Leukocyte Esterase (Negative) Urine HCG, Qual (Not Detectd) Urine Opiates Screen (NotDetected) Ur Oxycodone Screen (NotDetected) Urine Methadone Screen (NotDetected) Ur Propoxyphene Screen (NotDetected) Ur Barbiturates Screen (NotDetected) U Tricyclic Antidepress (NotDetected) Ur Phencyclidine Scrn (NotDetected) Ur Amphetamines Screen (NotDetected) U Methamphetamines Scrn (NotDetected) U Benzodiazepines Scrn (NotDetected) Urine Cocaine Screen (NotDetected) U Marijuana (THC) Screen (NotDetected) 08/17/23 08/17/23 Range/Units 09:10 10:37 WBC (3.8-10.6) k/uL RBC (3.80-5.40) m/uL Hgb (11.4-16.0) gm/dL Hct (34.0-46.0) % MCV (80.0-100.0) fL MCH (25.0-35.0) pg MCHC (31.0-37.0) g/dL RDW (11.5-15.5) % Plt Count (150-450) k/uL MPV Neutrophils % % Lymphocytes % % Monocytes % % Eosinophils % % Basophils % % Neutrophils # (1.3-7.7) k/uL Lymphocytes # (1.0-4.8) k/uL Monocytes # (0-1.0) k/uL Eosinophils # (0-0.7) k/uL Basophils # (0-0.2) k/uL PT (10.0-12.5) sec INR (<1.2) APTT (22.0-30.0) sec Sodium 141 (137-145) mmol/L Potassium 4.2 (3.5-5.1) mmol/L Chloride 110 H (98-107) mmol/L Carbon Dioxide 19 L (22-30) mmol/L Anion Gap 12 mmol/L BUN 18 H (7-17) mg/dL Creatinine 0.60 (0.52-1.04) mg/dL Est GFR (CKD-EPI)AfAm >90 (>60 ml/min/1.73 sqM) Est GFR (CKD-EPI)NonAf >90 (>60 ml/min/1.73 sqM) Glucose 152 H (74-99) mg/dL Lactic Ac Sepsis Rflx Plasma Lactic Acid Jamal (0.7-2.0) mmol/L Calcium 9.7 (8.4-10.2) mg/dL Total Bilirubin 0.6 (0.2-1.3) mg/dL AST 23 (14-36) U/L ALT 20 (4-34) U/L Alkaline Phosphatase 61 (38-126) U/L Total Protein 6.9 (6.3-8.2) g/dL Albumin 4.2 (3.5-5.0) g/dL Amylase 37 (30-110) U/L Lipase 46 (23-300) U/L Urine Color Urine Appearance (Clear) Urine pH (5.0-8.0) Ur Specific [place] (1.001-1.035) Urine Protein (Negative) Urine Glucose (UA) (Negative) Urine Ketones (Negative) Urine Blood (Negative) Urine Nitrite (Negative) Urine Bilirubin (Negative) Urine Urobilinogen (<2.0) mg/dL Ur Leukocyte Esterase (Negative) Urine HCG, Qual (Not Detectd) Urine Opiates Screen Detected H (NotDetected) Ur Oxycodone Screen Not Detected (NotDetected) Urine Methadone Screen Not Detected (NotDetected) Ur Propoxyphene Screen Not Detected (NotDetected) Ur Barbiturates Screen Not Detected (NotDetected) U Tricyclic Antidepress Not Detected (NotDetected) Ur Phencyclidine Scrn Not Detected (NotDetected) Ur Amphetamines Screen Not Detected (NotDetected) U Methamphetamines Scrn Not Detected (NotDetected) U Benzodiazepines Scrn Not Detected (NotDetected) Urine Cocaine Screen Not Detected (NotDetected) U Marijuana (THC) Screen Detected H (NotDetected) Disposition Clinical Impression: Abdominal pain, Cannabis abuse, Dehydration Disposition: HOME SELF-CARE Condition: Fair Instructions (If sedation given, give patient instructions): Abdominal Pain (ED), Acute Nausea and Vomiting (ED) Prescriptions: Metoclopramide [Reglan] 5 mg PO QID PRN #12 tab PRN Reason: Nausea Is patient prescribed a controlled substance at d/c from ED?: No Referrals: None,Stated [Primary Care Provider] - 1-2 days Niall Ash MD [REFERRING] - 1-2 days Time of Disposition: 11:40
[2023-08-17 08:19] VITALS: RESP 18
[2023-08-17 08:33] LABS: Basophils % (A) 0 %; Eosinophils # (A) 0.2 k/uL (0-0.7); Eosinophils % (A) 1 %; HCT 40.9 % (34.0-46.0); HGB 13.9 gm/dL (11.4-16.0); Lymphocytes # (A) 1.4 k/uL (1.0-4.8); Lymphocytes % (A) 10 %; MCH 31.8 pg (25.0-35.0); MCV 93.6 fL (80.0-100.0); Mean Platelet Volume 9.1; Monocytes # (A) 0.6 k/uL (0-1.0); Monocytes % (A) 4 %; Neutrophils # (A) 11.5 k/uL (1.3-7.7); Neutrophils % (A) 84 %; Platelet Count 258 k/uL (150-450); RBC 4.37 m/uL (3.80-5.40); RDW 12.2 % (11.5-15.5); WBC 13.7 k/uL (3.8-10.6)
[2023-08-17] MEDS ORDERED: METOCLOPRAMIDE 5 MG/ML 2 ML VIAL IVP STA (09:11)
[2023-08-17 09:34] LABS: ALT 20 U/L (4-34); AST 23 U/L (14-36); African American GFR (CKD) >90 (>60 ml/min/1.73 sqM); Albumin 4.2 g/dL (3.5-5.0); Alkaline Phosphatase 61 U/L (38-126); Amylase 37 U/L (30-110); Anion Gap 12 mmol/L; Blood Urea Nitrogen 18 mg/dL (7-17); Calcium 9.7 mg/dL (8.4-10.2); Carbon Dioxide 19 mmol/L (22-30); Chloride 110 mmol/L (98-107); Glucose 152 mg/dL (74-99); Lipase 46 U/L (23-300); Non-African American GFR(CKD) >90 (>60 ml/min/1.73 sqM); Potassium 4.2 mmol/L (3.5-5.1); Sodium 141 mmol/L (137-145); Total Bilirubin 0.6 mg/dL (0.2-1.3); Total Protein 6.9 g/dL (6.3-8.2)
[2023-08-17 09:39] LABS: INR 0.9 (<1.2); Prothrombin Time 10.4 sec (10.0-12.5)
[2023-08-17 09:44] LABS: Partial Thromboplastin Time 21.2 sec (22.0-30.0)
--- NOTE | 2023-08-17 10:16 | US ---
EXAMINATION TYPE: US gallbladder DATE OF EXAM: 08/17/2023 COMPARISON: NONE CLINICAL INDICATION: Female, 38 years old with history of ab pain/vomiting; RUQ pain, vomiting TECHNIQUE: Multiple sonographic images of the right upper quadrant are obtained. FINDINGS: EXAM MEASUREMENTS: Liver Length: 14.2 cm Gallbladder Wall: 0.2 cm CBD: 0.4 cm Right Kidney: 10.4 x 3.4 x 4.1 cm Pancreas: appears wnl Liver: appears wnl Gallbladder: no evidence of stones Evidence for sonographic Nur's sign: no CBD: appears wnl Right Kidney: no evidence of hydronephrosis IMPRESSION: Unremarkable sonographic examination of the right upper quadrant.
[2023-08-17 10:49] LABS: Appearance,Urine Clear (Clear); Color,Urine Yellow; Glucose,Urine (UA) Negative (Negative); PH, Urine 8.5 (5.0-8.0); Protein,Urine Negative (Negative); Specific Gravity,Urine 1.005 (1.001-1.035)
[2023-08-17 10:50] LABS: Bilirubin,Urine Negative (Negative); Blood,Urine Negative (Negative); Ketones,Urine 2+ (Negative); Nitrite,Urine Negative (Negative); Urobilinogen,Urine <2.0 mg/dL (<2.0)
[2023-08-17 10:51] LABS: Leukocyte Esterase,Urine Negative (Negative)
[2023-08-17 11:12] LABS: Amphetamine Screen,Urine Not Detected (NotDetected); Barbiturate Screen,Urine Not Detected (NotDetected); Benzodiazepines Screen,Urine Not Detected (NotDetected); Cocaine Screen,Urine Not Detected (NotDetected); Methadone Screen, Urine Not Detected (NotDetected); Opiate Screen,Urine Detected (NotDetected); Oxycodone Screen, Urine Not Detected (NotDetected); Phencyclidine Screen,Urine Not Detected (NotDetected); Tricyclic Antidepressant,Urine Not Detected (NotDetected); Urn Cannabinoid Scrn Detected (NotDetected)
[2023-08-17 12:27] VITALS: BP 119/72; PULSE 78; TEMP 97.9
== END 2023-08-17 12:16 | disposition home or self-care (01) ==
LOC: EC 07:49
DX: R10.13 Epigastric pain (principal); E86.0 Dehydration; F12.10 Cannabis abuse, uncomplicated; F32.A Depression, unspecified; F17.290 Nicotine dependence, other tobacco product, uncomplicated; Z88.0 Allergy status to penicillin; Z91.040 Latex allergy status; Z88.5 Allergy status to narcotic agent; Z88.8 Allergy status to other drugs, medicaments and biological substances; Z79.899 Other long term (current) drug therapy
CPT/HCPCS: 36415; 80053; 82150; 83605; 83690; 85025; 85610; 85730; 81003; 81025; 80306; 76705; 99284; 96374; 96375 ×3; 96376; 96361 ×3; J2765; J2405; J3490; J1170

== ENCOUNTER 2024-07-05 22:42 | Emergency (ER) | payer BC, OTHER ==
[2024-07-05 22:49] VITALS: BP 136/84; PULSE 101; RESP 18; TEMP 98.9
--- NOTE | 2024-07-05 23:06 | ED ---
General Adult HPI <Debbie White - Last Filed: 07/06/24 02:28> - General Source: patient, police Mode of arrival: ambulatory Limitations: altered mental status <Roman Claudio - Last Filed: 07/08/24 15:14> - General Chief complaint: Psychiatric Symptoms Stated complaint: petition Time Seen by Provider: 07/05/24 22:53 - History of Present Illness Initial comments: Dictation was produced using Viigo dictation software. please excuse any grammatical, word or spelling errors. Chief Complaint: 39-year-old female presents with suicidal ideation History of Present Illness: Patient 39-year-old female she is brought in by law enforcement. Patient allegedly was picked up by police after police was notified by patient's friend that she had been depressed and feeling rather suicidal. Patient is upset because she relapsed on alcohol. She has not had alcohol in 4 days prior to today. She supposed to go to alcohol Anonymous meeting but instead went to have some alcohol instead. She is upset because of relationship issues with her family. She at the bedside does not claim she is suicidal The ROS documented in this emergency department record has been reviewed and confirmed by me. Those systems with pertinent positive or negative responses have been documented in the HPI. All other systems are other negative and/or noncontributory. (Roman Claudio) - Related Data Home Medications Medication Instructions Recorded Confirmed Multivitamins, Thera [Multivitamin 1 tab PO DAILY 10/28/16 10/29/16 (formulary)] Naproxen Sodium [Aleve] 220 mg PO Q12H PRN 10/28/16 10/29/16 Previous Rx's Medication Instructions Recorded QUEtiapine XR [SEROquel XR] 100 mg PO DAILY@1900 30 Days 11/01/16 tab.er.24h Venlafaxine HCl ER [Effexor XR] 75 mg PO DAILY 30 Days cap.er.24h 11/01/16 HYDROcodone/APAP 5-325MG [[place] 1 tab PO Q6HR PRN #10 tab 04/24/20 5-325] Clarithromycin [Biaxin] 500 mg PO BID 10 Days #20 tab 07/23/23 Pantoprazole [Protonix] 40 mg PO DAILY #30 tab 07/23/23 metroNIDAZOLE [Flagyl] 500 mg PO BID #20 tab 07/23/23 Metoclopramide [Reglan] 5 mg PO QID PRN #12 tab 08/17/23 Allergies Allergy/AdvReac Type Severity Reaction Status Date / Time codeine Allergy Severe Itching Verified 07/05/24 22:49 latex Allergy Severe Itching Verified 07/05/24 22:49 Penicillins Allergy Severe Rash/Hives Verified 07/05/24 22:49 adhesive tape Allergy Itching Verified 07/05/24 22:49 Review of Systems ROS Other: All systems not noted in ROS Statement are negative. <Debbie White - Last Filed: 07/06/24 02:28> ROS Other: All systems not noted in ROS Statement are negative. <Roman Claudio - Last Filed: 07/08/24 15:14> ROS Statement: Those systems with pertinent positive or pertinent negative responses have been documented in the HPI. Past Medical History Past Medical History: No Reported History History of Any Multi-Drug Resistant Organisms: None Reported Past Surgical History: Orthopedic Surgery Additional Past Surgical History / Comment(s): R ankle fracture, R wrist cyst removal, R wrist shattered Past Anesthesia/Blood Transfusion Reactions: Previous Problems w/ Anesthesia, Motion Sickness Additional Past Anesthesia/Blood Transfusion Reaction / Comment(s): Pt. states she had n & v after anesthesia. Past Psychological History: Depression Smoking Status: Current every day smoker, Vaper Past Alcohol Use History: Occasional Past Drug Use History: Marijuana, Prescription Drug Abuse - Past Family History Father Family Medical History: Myocardial Infarction ([place]) <Roman Claudio - Last Filed: 07/08/24 15:14> General Exam Limitations: altered mental status <Roman Claudio - Last Filed: 07/08/24 15:14> - General Exam Comments Initial Comments: General: Well-appearing, nontoxic, no acute distress. Head: Normocephalic, atraumatic Eyes: PERRLA, EOMI ENT: Airway patent Chest: Nonlabored breathing Skin: No visual rash, normal skin tone Neuro: Alert and oriented 3 Musculoskeletal: No gross abnormalities o (Roman Claudio) Course Vital Signs 07/05/24 22:44 Temperature 98.9 F Pulse Rate 101 H Respiratory 18 Rate Blood Pressure 136/84 O2 Sat by Pulse 96 Oximetry Medical Decision Making <Debbie White - Last Filed: 07/06/24 02:28> <Roman Claudio - Last Filed: 07/08/24 15:14> - Medical Decision Making Patient medically cleared for EPS evaluation. Patient evaluate EPS. CT plan formulated. Psychiatrist okayed patient for discharge. Patient is stable for discharge home. (Debbie) Was pt. sent in by a medical professional or institution (, PA, TRAINMASTER, urgent care, hospital, or snf...) When possible be specific @ -No Did you speak to anyone other than the patient for history (EMS, parent, family, police, friend...)? What history was obtained from this source @ -No Did you review nursing and triage notes (agree or disagree)? Why? @ -I reviewed and agree with nursing and triage notes Were old charts reviewed (outside hosp., previous admission, EMS record, old EKG, old radiological studies, urgent care reports/EKG's, snf records)? Report findings @ -No old charts were reviewed Differential Diagnosis (chest pain, altered mental status, abdominal pain women, abdominal pain men, vaginal bleeding, musculoskeletal, weakness, fever, dyspnea, syncope, headache, dizziness, GI bleed, back pain, seizure, CVA, palpatations, mental health)? @ -Differential Mental Health: Depression, anxiety, bipolar, psychosis, schizophrenia, borderline personality, situational depression, adjustment disorder, behavioral disorder, brain tumor, malingering, substance abuse, encephalopathy, medication reaction, dementia, hypothyroidism, degenerative neurologic disorder, lupus.... This is not meant to be all-inclusive list EKG interpreted by me (3pts min.). @ -None done X-rays interpreted by me (1pt min.). @ -None done CT interpreted by me (1pt min.). @ -None done U/S interpreted by me (1pt. min.). @ -None done What testing was considered but not performed or refused? (CT, X-rays, U/S, labs)? Why? @ -None What meds were considered but not given or refused? Why? @ -None Was smoking cessation discussed for >3mins.? @ -No Were there social determinants of health that impacted care today? How? (Home lessness, low income, unemployed, alcoholism, drug addiction, transportation, low edu. Level, literacy, decrease access to med. care, usp, rehab)? @ -No Was there de-escalation of care discussed even if they declined (Discuss DNR or withdrawal of care, Hospice)? DNR status @ -No What co-morbidities impacted this encounter? (DM, HTN, Smoking, COPD, CAD, Cancer, CVA, ARF, Chemo, Hep., AIDS, mental health diagnosis, sleep apnea, morbid obesity)? @ -None Was patient admitted / discharged? Hospital course, mention meds given and route, prescriptions, significant lab abnormalities, going to OR and other pertinent info. @ -39-year-old female presents to the emergency department for suicidal ideation she was petitioned by correctional security officer. Vital signs stable. Physical examination is benign. Patient denies suicidal claims at the bedside. She has however petition by police. Patient pending sobriety for medical clearance for EPS evaluation. Patient care signed out to Dr. White at 1:00 AM pending clinical sobriety and EPS evaluation/recommendations Did you discuss the management of the patient with other professionals (professionals i.e. , PA, TRAINMASTER, lab, RT, psych nurse, social media designer, tipple operator, teacher, loans officer, case sealer)? Give summary @ -No Was critical care preformed (if so, how long)? @ -No Undiagnosed new problem with uncertain prognosis? @ -No Drug Therapy requiring intensive monitoring for toxicity (Heparin, Nitro, Insulin, Cardizem)? @ -No Were any procedures done? @ -No Diagnosis/symptom? Acute, or Chronic, or Acute on Chronic? Uncomplicated (without systemic symptoms) or Complicated (systemic symptoms)? @ -S suicidal l ideation Side effects of treatment? @ -No Exacerbation, Progression, or Severe Exacerbation? @ -No Poses a threat to life or bodily function? How? (Chest pain, [place], [place], pneumonia, PE, COPD, DKA, ARF, appy, cholecystitis, CVA, Diverticulitis, Homicidal, Suicidal, threat to staff... and all critical care pts) @ -yes (Roman Claudio) Disposition <Debbie White - Last Filed: 07/06/24 02:28> Is patient prescribed a controlled substance at d/c from ED?: No Time of Disposition: 15:14 <Roman Claudio - Last Filed: 07/08/24 15:14> Clinical Impression: Alcohol intoxication Disposition: HOME SELF-CARE Condition: Stable Referrals: None,Stated [Primary Care Provider] - 1-2 days
== END 2024-07-06 02:48 | disposition home or self-care (01) ==
LOC: EC 22:42
CPT/HCPCS: 82075; 99285

== ENCOUNTER 2025-03-19 02:22 | Emergency (ER) | payer BC, OTHER ==
[2025-03-19 02:28] VITALS: TEMP 98.5
[2025-03-19] MEDS: MORPHINE SULFATE 4 MG/ML SYRINGE IVP STA ×2 (03:33→06:09)
[2025-03-19] MEDS: SODIUM CHLORIDE 0.9% 1,000 ML IV SCH (03:33)
[2025-03-19] MEDS: ONDANSETRON 4 MG/2 ML VIAL IVP STA (03:35)
[2025-03-19] MEDS: PANTOPRAZOLE 40 MG/10 ML VIAL IVP STA (03:37)
[2025-03-19 04:18] LABS: ALT 28 U/L (4-34); AST 33 U/L (14-36); African American GFR (CKD) >90 (>60 ml/min/1.73 sqM); Albumin 4.1 g/dL (3.5-5.0); Alkaline Phosphatase 63 U/L (38-126); Amylase 38 U/L (30-110); Anion Gap 11 mmol/L; Blood Urea Nitrogen 19 mg/dL (7-17); Calcium 8.3 mg/dL (8.4-10.2); Carbon Dioxide 18 mmol/L (22-30); Chloride 110 mmol/L (98-107); Glucose 106 mg/dL (74-99); Lipase 54 U/L (23-300); Non-African American GFR(CKD) >90 (>60 ml/min/1.73 sqM); Potassium 3.5 mmol/L (3.5-5.1); Sodium 139 mmol/L (137-145); Total Protein 6.4 g/dL (6.3-8.2)
[2025-03-19] MEDS: METOCLOPRAMIDE 5 MG/ML 2 ML VIAL IVP STA (04:19)
--- NOTE | 2025-03-19 04:27 | CT ---
EXAM: CT Abdomen and Pelvis With Intravenous Contrast CLINICAL HISTORY: Abdominal Pain TECHNIQUE: Axial computed tomography images of the abdomen and pelvis with intravenous contrast. CTDI is 8.2 mGy and DLP is 275.3 mGy-cm. This CT exam was performed using one or more of the following dose reduction techniques: automated exposure control, adjustment of the mA and/or kV according to patient size, and/or use of iterative reconstruction technique. COMPARISON: No relevant prior studies available. FINDINGS: Lung bases: Unremarkable. No mass. No consolidation. ABDOMEN: Liver: Unremarkable. No mass. Gallbladder and bile ducts: Unremarkable. No calcified stones. No ductal dilation. Pancreas: Unremarkable. No mass. No ductal dilation. Spleen: Unremarkable. No splenomegaly. Adrenals: Indeterminate 1.6 cm left adrenal nodule. The left right adrenal gland is unremarkable. Kidneys and ureters: Bilateral nonobstructing renal calculi. No hydronephrosis of either kidney. Stomach and bowel: Unremarkable. No obstruction. No mucosal thickening. PELVIS: Appendix: Normal appendix. Bladder: Thickening of the urinary bladder wall could relate to nondistention or cystitis. Reproductive: Unremarkable as visualized. ABDOMEN and PELVIS: Intraperitoneal space: Unremarkable. No free air. No significant fluid collection. Bones/joints: No acute fracture. No dislocation. Soft tissues: Unremarkable. Vasculature: Unremarkable. No abdominal aortic aneurysm. Lymph nodes: Unremarkable. No enlarged lymph nodes. IMPRESSION: 1. Indeterminate 1.6 cm left adrenal nodule. Recommend further evaluation with adrenal protocol CT or MRI on a nonemergent basis. 2. Thickening of the urinary bladder wall could relate to nondistention or cystitis. 3. Bilateral nonobstructing renal calculi. No hydronephrosis of either kidney.
[2025-03-19 04:28] LABS: INR 1.0 (<1.2); Partial Thromboplastin Time 22.3 sec (22.0-30.0); Prothrombin Time 11.0 sec (10.0-12.5)
[2025-03-19 04:33] LABS: Basophils # (A) 0.06 10*3/uL (0.00-0.10); Basophils % (A) 0.6 %; Eosinophils # (A) 0.01 10*3/uL (0.04-0.35); Eosinophils % (A) 0.1 %; HCT 38.5 % (37.2-46.3); HGB 12.9 g/dL (12.0-15.0); Lymphocytes # (A) 1.66 10*3/uL (0.90-5.00); Lymphocytes % (A) 16.4 %; MCH 31.9 pg (27.0-32.0); MCHC 33.5 g/dL (32.0-37.0); MCV 95.3 fL (80.0-97.0); Monocytes # (A) 0.90 10*3/uL (0.20-1.00); Monocytes % (A) 8.9 %; Neutrophils # (A) 7.46 10*3/uL (1.80-7.70); Neutrophils % (A) 73.6 %; Platelet Count 226 10*3/uL (140-440); RBC 4.04 10*6/uL (4.10-5.20); RDW 12.1 % (11.5-14.5); WBC 10.13 10*3/uL (4.50-10.00)
[2025-03-19 04:34] VITALS: PULSE 79; RESP 18
[2025-03-19] MEDS: LIDOCAINE VISCOUS 2% 15 ML CUP PO ONE (05:38)
[2025-03-19] MEDS: MAG HYDROX/AL HYDROX/SIMETH 30 ML CUP PO STA (05:38)
[2025-03-19 05:49] LABS: Amorphous Sediment,Urine Rare /hpf; Bilirubin,Urine Negative (Negative); Blood,Urine Moderate (Negative); Color,Urine Colorless; Glucose,Urine (UA) Negative (Negative); Ketones,Urine 2+ (Negative); Leukocyte Esterase,Urine Negative (Negative); Nitrite,Urine Negative (Negative); PH, Urine 6.5 (5.0-8.0); Protein,Urine Negative (Negative); RBC,Urine 19 /hpf (0-5); Squamous Epithelial Cell,Urine 4 /hpf (0-4); Urobilinogen,Urine <2.0 mg/dL (<2.0); WBC,Urine 4 /hpf (0-5)
[2025-03-19 05:50] LABS: Specific Gravity,Urine >1.050 (1.001-1.035)
--- NOTE | 2025-03-19 06:02 | ED ---
General Adult HPI - General Chief complaint: Nausea/Vomiting/Diarrhea Stated complaint: NVD Time Seen by Provider: 03/19/25 03:10 Source: patient, RN notes reviewed, old records reviewed Mode of arrival: EMS Limitations: no limitations - History of Present Illness Initial comments: 39-year-old female presents emergency department complaining of nausea, vomiting, epigastric abdominal pain. History of gastritis. States she was seen at [facility] with no improvement in her symptoms. Does have a history of chronic alcohol use as well as marijuana use. Denies any chest pain or shortness of breath. Denies any urinary complaints. Denies constipation. Denies diarrhea. Presents for further evaluation at this time. - Related Data Home Medications Medication Instructions Recorded Confirmed Multivitamins, Thera [Multivitamin 1 tab PO DAILY 10/28/16 10/29/16 (formulary)] Naproxen Sodium [Aleve] 220 mg PO Q12H PRN 10/28/16 10/29/16 Previous Rx's Medication Instructions Recorded QUEtiapine XR [SEROquel XR] 100 mg PO DAILY@1900 30 Days 11/01/16 tab.er.24h Venlafaxine HCl ER [Effexor XR] 75 mg PO DAILY 30 Days cap.er.24h 11/01/16 HYDROcodone/APAP 5-325MG [[place] 1 tab PO Q6HR PRN #10 tab 04/24/20 5-325] Clarithromycin [Biaxin] 500 mg PO BID 10 Days #20 tab 07/23/23 Pantoprazole [Protonix] 40 mg PO DAILY #30 tab 07/23/23 metroNIDAZOLE [Flagyl] 500 mg PO BID #20 tab 07/23/23 Metoclopramide [Reglan] 5 mg PO QID PRN #12 tab 08/17/23 Ondansetron Odt [Zofran Odt] 4 mg PO Q8HR PRN 2 Days #6 tab 03/19/25 Allergies Allergy/AdvReac Type Severity Reaction Status Date / Time codeine Allergy Severe Itching Verified 03/19/25 02:29 latex Allergy Severe Itching Verified 03/19/25 02:29 Penicillins Allergy Severe Rash/Hives Verified 03/19/25 02:29 adhesive tape Allergy Itching Verified 03/19/25 02:29 Review of Systems ROS Statement: Those systems with pertinent positive or pertinent negative responses have been documented in the HPI. Review of Systems: CONST: Denies fever EYES: Denies blurry vision ENT: Denies nasal congestion C/V: Denies Chest pain RESP: Denies shortness of breath GI: Endorses abdominal pain : Denies dysuria SKIN: Denies rash. MSK: Denies joint pain. NEURO: Denies headache ROS Other: All systems not noted in ROS Statement are negative. Past Medical History Past Medical History: No Reported History History of Any Multi-Drug Resistant Organisms: None Reported Past Surgical History: Orthopedic Surgery Additional Past Surgical History / Comment(s): R ankle fracture, R wrist cyst removal, R wrist shattered Past Anesthesia/Blood Transfusion Reactions: Previous Problems w/ Anesthesia, Motion Sickness Additional Past Anesthesia/Blood Transfusion Reaction / Comment(s): Pt. states she had n & v after anesthesia. Past Psychological History: Depression Smoking Status: Current every day smoker, Vaper Past Alcohol Use History: Occasional Past Drug Use History: Marijuana, Prescription Drug Abuse - Past Family History Father Family Medical History: Myocardial Infarction ([place]) General Exam - General Exam Comments Initial Comments: General: Appears in no acute distress. HEAD: Normal with no signs of head trauma. EYES: PERRLA, EOMI, conjunctiva normal, no discharge. ENT: Hearing grossly intact, normal oropharynx. RESPIRATORY: Clear breath sounds bilaterally. No wheezes, rales, or rhonchi. C/V: Regular rate and rhythm. S1 and S2 auscultated, no edema, peripheral pulses 2+ and intact throughout ABD: Abdomen soft, nondistended. Tender to palpation epigastric region. No guarding or rebound tenderness. No peritoneal signs. EXT: Normal range of motion, no obvious deformity SKIN: No rashes or lesions observed on exposed skin. NEURO: Alert and orient x 4. Limitations: no limitations Course Vital Signs 03/19/25 03/19/25 03/19/25 02:23 04:33 06:15 Temperature 98.5 F Pulse Rate 76 79 79 Respiratory 20 18 18 Rate Blood Pressure 135/88 142/95 137/92 O2 Sat by Pulse 97 97 97 Oximetry Medical Decision Making - Medical Decision Making Was pt. sent in by a medical professional or institution (, PA, NATURAL GAS ENGINEER, urgent care, hospital, or intermediate...) When possible be specific @ -No Did you speak to anyone other than the patient for history (EMS, parent, family, police, friend...)? What history was obtained from this source @ -No Did you review nursing and triage notes (agree or disagree)? Why? @ -I reviewed and agree with nursing and triage notes Were old charts reviewed (outside hosp., previous admission, EMS record, old EKG, old radiological studies, urgent care reports/EKG's, intermediate records)? Report findings @ -No old charts were reviewed Differential Diagnosis (chest pain, altered mental status, abdominal pain women, abdominal pain men, vaginal bleeding, weakness, fever, dyspnea, syncope, headache, dizziness, GI bleed, back pain, seizure, CVA, palpatations, mental health, musculoskeletal)? @ -Differential Abdominal Pain Women: Appendicitis, Cholecystitis, diverticulosis, ischemic bowel, pancreatitis, hepatitis, UTI, gastroenteritis, AAA, incarcerated hernia, bowel obstruction, constipation, inflammatory bowel, hepatitis, peptic ulcer disease, splenic infar ction, perforated viscus, vulvitis, ovarian torsion, PID, kidney stone, placenta abruption, this is not meant to be an all-inclusive list EKG interpreted by me (3pts min.). @ -As above X-rays interpreted by me (1pt min.). @ -None done CT interpreted by me (1pt min.). @ -CT abdomen pelvis shows an adrenal nodule which was unknown to the patient, bilateral nonobstructing renal calculi, as well as possible cystitis versus nondistention of the urinary bladder. U/S interpreted by me (1pt. min.). @ -None done What testing was considered but not performed or refused? (CT, X-rays, U/S, labs)? Why? @ -None What meds were considered but not given or refused? Why? @ -None Did you discuss the management of the patient with other professionals (professionals i.e. , PA, NATURAL GAS ENGINEER, lab, RT, psych nurse, high school social science teacher, tobacco drier operator, teacher, community arts officer, skilled nursing case manager)? Give summary @ -No Was smoking cessation discussed for >3mins.? @ -No Was critical care preformed (if so, how long)? @ -No Were there social determinants of health that impacted care today? How? (Homelessness, low income, unemployed, alcoholism, drug addiction, transportation, low edu. Level, literacy, decrease access to med. care, senior living, rehab)? @ -No Was there de-escalation of care discussed even if they declined (Discuss DNR or withdrawal of care, Hospice)? DNR status @ -No What co-morbidities impacted this encounter? (DM, HTN, Smoking, COPD, CAD, Cancer, CVA, ARF, Chemo, Hep., AIDS, mental health diagnosis, sleep apnea, morbid obesity)? @ -Gastritis Was patient admitted / discharged? Hospital course, mention meds given and route, prescriptions, significant lab abnormalities, going to OR and other pertinent info. @ -Patient presents with nausea and vomiting and history of gastritis. Symptoms seem worse today. Presents for further evaluation. Will be given IV analgesia meds, nausea meds, fluids. Patient was in agreement this plan. Vitals are within acceptable limits. Laboratory studies returned remarkable for mild leukocytosis of 10 which is likely reactive. Lactic acid within normal limits. Urine unremarkable. Remainder the labs unremarkable. CT imaging shows nonspecific findings of the adrenal nodule, as well as bilateral nonobstructing renal calculi. Patient also has a nondistended bladder versus possible cystitis however urinalysis unremarkable. I updated patient. She expressed understanding. She will be discharged home at this time with instruction to follow-up PCP and possible gastroenterology. She may require an EGD. Patient was in agreement this plan. We discussed her adre nal nodule finding and she expressed understanding that she requires more workup for it to evaluate the etiology. I will provide the patient with a prescription for ODT Zofran. I instructed the patient to follow up with their PCP in the next 1-3 days. I provided contact information for follow up with gastroenterology. I explained that the patient should return to the emergency department if they experience any worsening symptoms. Strict return precautions were discussed with the patient. The patient expressed understanding of these instructions. I answered all questions that the patient had. The patient was discharged home in good condition with their prescriptions and follow up information. Undiagnosed new problem with uncertain prognosis? @ -No Drug Therapy requiring intensive monitoring for toxicity (Heparin, Nitro, Insulin, Cardizem)? @ -No Were any procedures done? @ -No Diagnosis/symptom? @ -Nausea and vomiting, adrenal nodule Acute, or Chronic, or Acute on Chronic? @ -Acute Uncomplicated (without systemic symptoms) or Complicated (systemic symptoms)? @ -Uncomplicated Side effects of treatment? @ -No Exacerbation, Progression, or Severe Exacerbation? @ -No Poses a threat to life or bodily function? How? (Chest pain, [place], [place], pneumonia, PE, COPD, DKA, ARF, appy, cholecystitis, CVA, Diverticulitis, Homicidal, Suicidal, threat to staff... and all critical care pts) @ -unlikely at this time - Lab Data Result diagrams: 03/19/25 03:47 03/19/25 03:47 Lab Results 03/19/25 03/19/25 03/19/25 Range/Units 03:47 03:47 03:47 WBC 10.13 H (4.50-10.00) 10*3/uL RBC 4.04 L (4.10-5.20) 10*6/uL Hgb 12.9 (12.0-15.0) g/dL Hct 38.5 (37.2-46.3) % MCV 95.3 (80.0-97.0) fL MCH 31.9 (27.0-32.0) pg MCHC 33.5 (32.0-37.0) g/dL Plt Count 226 (140-440) 10*3/uL MPV 10.0 (9.5-12.2) fL Immature Gran % (Auto) 0.4 % Neutrophils % 73.6 % Lymphocytes % 16.4 % Monocytes % 8.9 % Eosinophils % 0.1 % Basophils % 0.6 % Immature Gran # 0.04 (0.00-0.04) 10*3/uL Neutrophils # 7.46 (1.80-7.70) 10*3/uL Lymphocytes # 1.66 (0.90-5.00) 10*3/uL Monocytes # 0.90 (0.20-1.00) 10*3/uL Eosinophils # 0.01 L (0.04-0.35) 10*3/uL Basophils # 0.06 (0.00-0.10) 10*3/uL PT 11.0 (10.0-12.5) sec INR 1.0 (<1.2) APTT 22.3 (22.0-30.0) sec Sodium 139 (137-145) mmol/L Potassium 3.5 (3.5-5.1) mmol/L Chloride 110 H (98-107) mmol/L Carbon Dioxide 18 L (22-30) mmol/L Anion Gap 11 mmol/L BUN 19 H (7-17) mg/dL Creatinine 0.81 (0.52-1.04) mg/dL Est GFR (CKD-EPI)AfAm >90 (>60 ml/min/1.73 sqM) Est GFR (CKD-EPI)NonAf >90 (>60 ml/min/1.73 sqM) Glucose 106 H (74-99) mg/dL Plasma Lactic Acid Jamal (0.7-2.0) mmol/L Calcium 8.3 L (8.4-10.2) mg/dL Total Bilirubin 1.1 (0.2-1.3) mg/dL AST 33 (14-36) U/L ALT 28 (4-34) U/L Alkaline Phosphatase 63 (38-126) U/L Total Protein 6.4 (6.3-8.2) g/dL Albumin 4.1 (3.5-5.0) g/dL Amylase 38 (30-110) U/L Lipase 54 (23-300) U/L Urine Color Urine Appearance (Clear) Urine pH (5.0-8.0) Ur Specific [place] (1.001-1.035) Urine Protein (Negative) Urine Glucose (UA) (Negative) Urine Ketones (Negative) Urine Blood (Negative) Urine Nitrite (Negative) Urine Bilirubin (Negative) Urine Urobilinogen (<2.0) mg/dL Ur Leukocyte Esterase (Negative) Urine RBC (0-5) /hpf Urine WBC (0-5) /hpf Ur Squamous Epith Cells (0-4) /hpf Amorphous Sediment (None) /hpf 03/19/25 03/19/25 Range/Units 03:47 05:13 WBC (4.50-10.00) 10*3/uL RBC (4.10-5.20) 10*6/uL Hgb (12.0-15.0) g/dL Hct (37.2-46.3) % MCV (80.0-97.0) fL MCH (27.0-32.0) pg MCHC (32.0-37.0) g/dL Plt Count (140-440) 10*3/uL MPV (9.5-12.2) fL Immature Gran % (Auto) % Neutrophils % % Lymphocytes % % Monocytes % % Eosinophils % % Basophils % % Immature Gran # (0.00-0.04) 10*3/uL Neutrophils # (1.80-7.70) 10*3/uL Lymphocytes # (0.90-5.00) 10*3/uL Monocytes # (0.20-1.00) 10*3/uL Eosinophils # (0.04-0.35) 10*3/uL Basophils # (0.00-0.10) 10*3/uL PT (10.0-12.5) sec INR (<1.2) APTT (22.0-30.0) sec Sodium (137-145) mmol/L Potassium (3.5-5.1) mmol/L Chloride (98-107) mmol/L Carbon Dioxide (22-30) mmol/L Anion Gap mmol/L BUN (7-17) mg/dL Creatinine (0.52-1.04) mg/dL Est GFR (CKD-EPI)AfAm (>60 ml/min/1.73 sqM) Est GFR (CKD-EPI)NonAf (>60 ml/min/1.73 sqM) Glucose (74-99) mg/dL Plasma Lactic Acid Jamal 1.0 (0.7-2.0) mmol/L Calcium (8.4-10.2) mg/dL Total Bilirubin (0.2-1.3) mg/dL AST (14-36) U/L ALT (4-34) U/L Alkaline Phosphatase (38-126) U/L Total Protein (6.3-8.2) g/dL Albumin (3.5-5.0) g/dL Amylase (30-110) U/L Lipase (23-300) U/L Urine Color Colorless Urine Appearance Clear (Clear) Urine pH 6.5 (5.0-8.0) Ur Specific [place] >1.050 H (1.001-1.035) Urine Protein Negative (Negative) Urine Glucose (UA) Negative (Negative) Urine Ketones 2+ H (Negative) Urine Blood Moderate H (Negative) Urine Nitrite Negative (Negative) Urine Bilirubin Negative (Negative) Urine Urobilinogen <2.0 (<2.0) mg/dL Ur Leukocyte Esterase Negative (Negative) Urine RBC 19 H (0-5) /hpf Urine WBC 4 (0-5) /hpf Ur Squamous Epith Cells 4 (0-4) /hpf Amorphous Sediment Rare H (None) /hpf - EKG Data -: EKG Interpreted by Me EKG Comments: 12-lead Electrocardiogram Interpretation Note EKG was reviewed and interpreted by myself. 12-lead ECG performed at 0336 is interpreted by me as revealing sinus bradycardia at a rate of 58 beats per minute. [place] is normal. ID interval is 132 ms, QRS duration 74 ms, QTc is 428 ms.. There were no ST or T wave abnormalities to suggest myocardial ischemia or injury. R wave progression across the precordium was satisfactory. By my interpretation this EKG is non-diagnostic for acute ischemia. Disposition Clinical Impression: Nausea and vomiting, Adrenal nodule Disposition: HOME SELF-CARE Condition: Good Instructions (If sedation given, give patient instructions): Acute Nausea and Vomiting (ED) Additional Instructions: Diagnosis is nausea and vomiting of unknown etiology. He also have an adrenal nodule on CT. That requires further imaging and workup with your PCP. Follow- up with your PCP in the next 1 to 3 days. Return to the ER if worsening symptoms. Follow-up with GI specialist as well. Prescriptions: Ondansetron Odt [Zofran Odt] 4 mg PO Q8HR PRN 2 Days #6 tab PRN Reason: Nausea Is patient prescribed a controlled substance at d/c from ED?: No Referrals: None,Stated [Primary Care Provider] - 1-2 days Tanya Carpenter MD [STAFF PHYSICIAN] - 1-2 days Forms: Area PCPs Time of Disposition: 06:00
[2025-03-19] MEDS: ONDANSETRON 4 MG ODT STARTER PACK 2 TAB BTL PO STA (06:10)
[2025-03-19 06:17] VITALS: BP 137/92
== END 2025-03-19 06:17 | disposition home or self-care (01) ==
LOC: EC 02:22
DX: R11.2 Nausea with vomiting, unspecified (principal); E27.9 Disorder of adrenal gland, unspecified; K29.70 Gastritis, unspecified, without bleeding; F17.290 Nicotine dependence, other tobacco product, uncomplicated; Z88.0 Allergy status to penicillin; Z88.5 Allergy status to narcotic agent; Z91.09 Other allergy status, other than to drugs and biological substances; Z91.040 Latex allergy status
CPT/HCPCS: 36415; 93005; 80053; 82150; 83605; 83690; 85025; 85610; 85730; 81001; 74177; 99285; 96374; 96375; 96376; 96361; J2270; J2765; J2405; S0119; Q9967; J2470

== ENCOUNTER 2025-03-20 13:29 | Emergency (ER) | payer BC, OTHER ==
[2025-03-20 13:54] VITALS: BP 149/90; PULSE 57; RESP 18; TEMP 97.9
[2025-03-20] MEDS: PANTOPRAZOLE 40 MG/10 ML VIAL IVP STA (14:15)
[2025-03-20] MEDS: PROCHLORPERAZINE INJ 10 MG/2 ML VIAL IVP STA (14:15)
[2025-03-20] MEDS: MORPHINE SULFATE 4 MG/ML SYRINGE IVP STA ×2 (14:16→15:46)
[2025-03-20] MEDS: LIDOCAINE VISCOUS 2% 15 ML CUP PO ONE (14:16)
[2025-03-20] MEDS: MAG HYDROX/AL HYDROX/SIMETH 30 ML CUP PO STA (14:16)
[2025-03-20] MEDS: SODIUM CHLORIDE 0.9% 1,000 ML IV ONE (14:17)
--- NOTE | 2025-03-20 14:19 | ED ---
Abdominal Pain HPI - General Chief Complaint: Abdominal Pain Stated Complaint: Nausea, vomiting Time Seen by Provider: 03/20/25 13:35 Source: patient, RN notes reviewed Mode of arrival: ambulatory Limitations: no limitations - History of Present Illness Initial Comments: This is a 39-year-old female who presents to the emergency department for abdominal pain, nausea, and vomiting. States that it started 3 to 4 days ago. She initially went to [facility] and then came here yesterday for the same complaint. States that they prescribed her with Zofran, however it has not been effective for the nausea. States that the only thing that seems to help is the GI cocktail and morphine. Denies any changes in bowel/bladder habits. She does note that she was treated with antibiotics a few years ago for the same thing due to the possibility of H. pylori and she wants to try a course of antibiotics again. MD Complaint: abdominal pain - Related Data Home Medications Medication Instructions Recorded Confirmed Multivitamins, Thera [Multivitamin 1 tab PO DAILY 10/28/16 10/29/16 (formulary)] Naproxen Sodium [Aleve] 220 mg PO Q12H PRN 10/28/16 10/29/16 Previous Rx's Medication Instructions Recorded QUEtiapine XR [SEROquel XR] 100 mg PO DAILY@1900 30 Days 11/01/16 tab.er.24h Venlafaxine HCl ER [Effexor XR] 75 mg PO DAILY 30 Days cap.er.24h 11/01/16 HYDROcodone/APAP 5-325MG [Eola 1 tab PO Q6HR PRN #10 tab 04/24/20 5-325] Clarithromycin [Biaxin] 500 mg PO BID 10 Days #20 tab 07/23/23 Pantoprazole [Protonix] 40 mg PO DAILY #30 tab 07/23/23 metroNIDAZOLE [Flagyl] 500 mg PO BID #20 tab 07/23/23 Metoclopramide [Reglan] 5 mg PO QID PRN #12 tab 08/17/23 Ondansetron Odt [Zofran Odt] 4 mg PO Q8HR PRN 2 Days #6 tab 03/19/25 Clarithromycin [Biaxin] 500 mg PO BID 10 Days #20 tab 03/20/25 Metoclopramide [Reglan] 10 mg PO Q6H PRN #30 tab 03/20/25 Pantoprazole Sodium 40 mg PO DAILY #30 tab 03/20/25 metroNIDAZOLE [Flagyl] 500 mg PO BID 10 Days #20 tab 03/20/25 Allergies Allergy/AdvReac Type Severity Reaction Status Date / Time codeine Allergy Severe Itching Verified 03/20/25 13:43 latex Allergy Severe Itching Verified 03/20/25 13:43 Penicillins Allergy Severe Rash/Hives Verified 03/20/25 13:43 adhesive tape Allergy Itching Verified 03/20/25 13:43 Review of Systems ROS Statement: Those systems with pertinent positive or pertinent negative responses have been documented in the HPI. ROS Other: All systems not noted in ROS Statement are negative. Past Medical History Past Medical History: No Reported History History of Any Multi-Drug Resistant Organisms: None Reported Past Surgical History: Orthopedic Surgery Additional Past Surgical History / Comment(s): R ankle fracture, R wrist cyst removal, R wrist shattered Past Anesthesia/Blood Transfusion Reactions: Previous Problems w/ Anesthesia, Motion Sickness Additional Past Anesthesia/Blood Transfusion Reaction / Comment(s): Pt. states she had n & v after anesthesia. Past Psychological History: Depression Smoking Status: Current every day smoker, Vaper Past Alcohol Use History: Occasional Past Drug Use History: Marijuana, Prescription Drug Abuse - Past Family History Father Family Medical History: Myocardial Infarction (MD) General Exam Limitations: no limitations General appearance: alert, in no apparent distress Head exam: Present: atraumatic, normocephalic, normal inspection Respiratory exam: Present: normal lung sounds bilaterally. Absent: respiratory distress, wheezes, rales, rhonchi, stridor Cardiovascular Exam: Present: regular rate, normal rhythm GI/Abdominal exam: Present: soft, tenderness (LUQ). Absent: distended Neurological exam: Present: alert, oriented X3, CN II-XII intact Psychiatric exam: Present: normal affect, normal mood Skin exam: Present: warm, dry, intact, normal color. Absent: rash Course Vital Signs 03/20/25 13:37 Temperature 97.9 F Pulse Rate 57 L Respiratory 18 Rate Blood Pressure 149/90 O2 Sat by Pulse 99 Oximetry Medical Decision Making - Medical Decision Making This is a 39-year-old female who presents to the emergency department for abdominal pain, nausea, and vomiting. Was pt. sent in by a medical professional or institution? @ -No Did you speak to anyone other than the patient for history? @ -No Did you review nursing and triage notes? @ -Yes, and I agree, it is accurate with regards to the patient's symptoms. Were old charts reviewed? @ -CT scan of the abdomen and pelvis from 03/19 demonstrating no acute findings. Differential Diagnosis? @ -Differential Abdominal Pain Women: Appendicitis, Cholecystitis, diverticulosis, ischemic bowel, pancreatitis, he patitis, UTI, gastroenteritis, AAA, incarcerated hernia, bowel obstruction, constipation, inflammatory bowel, hepatitis, peptic ulcer disease, splenic infarction, perforated viscus, vulvitis, ovarian torsion, PID, kidney stone, placenta abruption, this is not meant to be an all-inclusive list EKG interpreted by me (3pts min.)? @ -Not obtained X-rays interpreted by me (1pt min.)? @ -Not obtained CT interpreted by me (1pt min.)? @ -Not obtained U/S interpreted by me (1pt. min.)? @ -Not obtained What testing was considered but not performed? (CT, X-rays, U/S, labs)? Why? @ -None What meds were considered but not given? Why? @ -None Did you discuss the management of the patient with other professionals? @ -No Did you reconcile home meds? @ -No Was smoking cessation discussed for >3mins.? @ -I discussed smoking cessation for greater than 3 minutes. The risk of smoking were discussed with the patient including but not limited to risks of cancer, stroke, coronary artery disease and COPD. Also discussed with patient were multiple methods of quitting smoking. Lastly we discussed the financial cost of smoking. Was critical care preformed (if so, how long)? @ -No Were there social determinants of health that impacted care today? How? (Homelessness, low income, unemployed, alcoholism, drug addiction, transportation, low edu. Level, literacy, decrease access to med. care, senior care, rehab)? @ -No Was there de-escalation of care discussed even if they declined? (Discuss DNR or withdrawal of care, Hospice)? @ -No What co-morbidities impacted this encounter? (DM, HTN, Smoking, COPD, CAD, Cancer, CVA, Hep., AIDS, mental health diagnosis, sleep apnea, morbid obesity)? @ -GERD, smoking Was patient admitted / discharged? @ -Discharged. Gavi demonstrates a mildly elevated lactic acid of 2.1 and is otherwise unremarkable. UDS positive for opiates and marijuana. Patient was evaluated here yesterday and at that point had a CT scan of the abdomen and pelvis revealing no acute findings. Imaging was not repeated. Symptoms were controlled in the emergency department. Patient requested to try another course of antibiotics due to the possibility of H. pylori contributing to this. States that she has had the antibiotics for it in the past and they seemed to work. Advised that this may not offer any benefit and could worsen symptoms, however I am agreeable to try a course of it. Clarithromycin and metronidazole prescribed per current recommendations along with pantoprazole and Reglan. We also discussed the possibility of cannabinoid hyperemesis syndrome contributing to this and advised she stop smoking marijuana for the meantime to see if that offers any benefit. Information for follow-up with GI provided. She is instructed to contact them for a follow-up appointment. Patient discharged home in stable condition. Case discussed with ED attending Dr. Salinas. Return precautions reviewed in depth, the patient is instructed to return to the emergency department with any new, worsening, or concerning symptoms. Patient verbalized understanding. Undiagnosed new problem with uncertain prognosis? @ -None Drug Therapy requiring intensive monitoring for toxicity (Heparin, Nitro, Insulin, Cardizem)? @ -None Were any procedures done? @ -None Diagnosis/symptom? @ -Abdominal pain, nausea/vomiting, gastritis Acute, or Chronic, or Acute on Chronic? @ -Acute Uncomplicated (without systemic symptoms) or Complicated (systemic symptoms)? @ -Uncomplicated Side effects of treatment? @ -None Exacerbation, Progression, or Severe Exacerbation] @ -Not applicable Poses a threat to life or bodily function? @ -No - Lab Data Result diagrams: 03/20/25 14:45 03/20/25 13:55 Lab Results 03/20/25 03/20/25 03/20/25 Range/Units 13:55 13:55 13:55 WBC (4.50-10.00) 10*3/uL RBC (4.10-5.20) 10*6/uL Hgb (12.0-15.0) g/dL Hct (37.2-46.3) % MCV (80.0-97.0) fL MCH (27.0-32.0) pg MCHC (32.0-37.0) g/dL Plt Count (140-440) 10*3/uL MPV (9.5-12.2) fL Immature Gran % (Auto) % Neutrophils % % Lymphocytes % % Monocytes % % Eosinophils % % Basophils % % Immature Gran # (0.00-0.04) 10*3/uL Neutrophils # (1.80-7.70) 10*3/uL Lymphocytes # (0.90-5.00) 10*3/uL Monocytes # (0.20-1.00) 10*3/uL Eosinophils # (0.04-0.35) 10*3/uL Basophils # (0.00-0.10) 10*3/uL Sodium 141 (137-145) mmol/L Potassium 3.6 (3.5-5.1) mmol/L Chloride 110 H (98-107) mmol/L Carbon Dioxide 19 L (22-30) mmol/L Anion Gap 12 mmol/L BUN 12 (7-17) mg/dL Creatinine 0.77 (0.52-1.04) mg/dL Est GFR (CKD-EPI)AfAm >90 (>60 ml/min/1.73 sqM) Est GFR (CKD-EPI)NonAf >90 (>60 ml/min/1.73 sqM) Glucose 110 H (74-99) mg/dL Lactic Ac Sepsis Rflx Plasma Lactic Acid Jamal 2.1 H* (0.7-2.0) mmol/L Calcium 9.1 (8.4-10.2) mg/dL Magnesium 2.1 (1.6-2.3) mg/dL Total Bilirubin 1.1 (0.2-1.3) mg/dL AST 36 (14-36) U/L ALT 31 (4-34) U/L Alkaline Phosphatase 67 (38-126) U/L Total Protein 6.8 (6.3-8.2) g/dL Albumin 4.3 (3.5-5.0) g/dL Amylase 40 (30-110) U/L Lipase 51 (23-300) U/L HCG, Qual Not Detected Urine Opiates Screen Detected H (NotDetected) Ur Oxycodone Screen Not Detected (NotDetected) Urine Methadone Screen Not Detected (NotDetected) Ur Barbiturates Screen Not Detected (NotDetected) U Tricyclic Antidepress Not Detected (NotDetected) Ur Phencyclidine Scrn Not Detected (NotDetected) Ur Amphetamines Screen Not Detected (NotDetected) U Methamphetamines Scrn Not Detected (NotDetected) U Benzodiazepines Scrn Not Detected (NotDetected) Urine Cocaine Screen Not Detected (NotDetected) U Marijuana (THC) Screen Detected H (NotDetected) 03/20/25 03/20/25 03/20/25 Range/Units 14:45 14:53 17:10 WBC 9.25 (4.50-10.00) 10*3/uL RBC 3.92 L (4.10-5.20) 10*6/uL Hgb 12.8 (12.0-15.0) g/dL Hct 37.0 L (37.2-46.3) % MCV 94.4 (80.0-97.0) fL MCH 32.7 H (27.0-32.0) pg MCHC 34.6 (32.0-37.0) g/dL Plt Count 215 (140-440) 10*3/uL MPV 10.1 (9.5-12.2) fL Immature Gran % (Auto) 0.3 % Neutrophils % 82.3 % Lymphocytes % 10.4 % Monocytes % 6.6 % Eosinophils % 0.0 % Basophils % 0.4 % Immature Gran # 0.03 (0.00-0.04) 10*3/uL Neutrophils # 7.61 (1.80-7.70) 10*3/uL Lymphocytes # 0.96 (0.90-5.00) 10*3/uL Monocytes # 0.61 (0.20-1.00) 10*3/uL Eosinophils # 0.00 L (0.04-0.35) 10*3/uL Basophils # 0.04 (0.00-0.10) 10*3/uL Sodium (137-145) mmol/L Potassium (3.5-5.1) mmol/L Chloride (98-107) mmol/L Carbon Dioxide (22-30) mmol/L Anion Gap mmol/L BUN (7-17) mg/dL Creatinine (0.52-1.04) mg/dL Est GFR (CKD-EPI)AfAm (>60 ml/min/1.73 sqM) Est GFR (CKD-EPI)NonAf (>60 ml/min/1.73 sqM) Glucose (74-99) mg/dL Lactic Ac Sepsis Rflx Y Plasma Lactic Acid Jamal 0.9 (0.7-2.0) mmol/L Calcium (8.4-10.2) mg/dL Magnesium (1.6-2.3) mg/dL Total Bilirubin (0.2-1.3) mg/dL AST (14-36) U/L ALT (4-34) U/L Alkaline Phosphatase (38-126) U/L Total Protein (6.3-8.2) g/dL Albumin (3.5-5.0) g/dL Amylase (30-110) U/L Lipase (23-300) U/L HCG, Qual Urine Opiates Screen (NotDetected) Ur Oxycodone Screen (NotDetected) Urine Methadone Screen (NotDetected) Ur Barbiturates Screen (NotDetected) U Tricyclic Antidepress (NotDetected) Ur Phencyclidine Scrn (NotDetected) Ur Amphetamines Screen (NotDetected) U Methamphetamines Scrn (NotDetected) U Benzodiazepines Scrn (NotDetected) Urine Cocaine Screen (NotDetected) U Marijuana (THC) Screen (NotDetected) Disposition Clinical Impression: Abdominal pain, Nausea and vomiting, Nicotine dependence Disposition: HOME SELF-CARE Instructions (If sedation given, give patient instructions): Acute Nausea and Vomiting (ED), Abdominal Pain (ED) Additional Instructions: Return to the emergency department with any new, worsening, or concerning symptoms. Take both antibiotics as prescribed for 10 days. Begin taking the pantoprazole daily. Take this 30 to 60 minutes before eating or taking other medication for the best effect. You can take the Reglan up to every 6 hours as needed for nausea and vomiting. You may alternate taking this with the Zofran. You can also take the Levsin drops provided every 4 hours as needed for abdominal upset. Follow up gastroenterology as listed below. Prescriptions: Clarithromycin [Biaxin] 500 mg PO BID 10 Days #20 tab metroNIDAZOLE [Flagyl] 500 mg PO BID 10 Days #20 tab Pantoprazole Sodium 40 mg PO DAILY #30 tab Metoclopramide [Reglan] 10 mg PO Q6H PRN #30 tab PRN Reason: Nausea And Vomiting Is patient prescribed a controlled substance at d/c from ED?: No Referrals: None,Stated [Primary Care Provider] - 1-2 days Tanya Carpenter MD [STAFF PHYSICIAN] - 1-2 days Forms: Area PCPs Time of Disposition: 17:30
[2025-03-20 14:46] LABS: HCG,Qualitative Serum Not Detected
[2025-03-20 14:50] LABS: ALT 31 U/L (4-34); African American GFR (CKD) >90 (>60 ml/min/1.73 sqM); Amylase 40 U/L (30-110); Anion Gap 12 mmol/L; Blood Urea Nitrogen 12 mg/dL (7-17); Calcium 9.1 mg/dL (8.4-10.2); Carbon Dioxide 19 mmol/L (22-30); Chloride 110 mmol/L (98-107); Glucose 110 mg/dL (74-99); Lipase 51 U/L (23-300); Magnesium 2.1 mg/dL (1.6-2.3); Non-African American GFR(CKD) >90 (>60 ml/min/1.73 sqM); Sodium 141 mmol/L (137-145)
[2025-03-20 14:51] LABS: AST 36 U/L (14-36); Albumin 4.3 g/dL (3.5-5.0); Alkaline Phosphatase 67 U/L (38-126); Potassium 3.6 mmol/L (3.5-5.1); Total Protein 6.8 g/dL (6.3-8.2)
[2025-03-20 15:00] LABS: Basophils # (A) 0.04 10*3/uL (0.00-0.10); Basophils % (A) 0.4 %; Eosinophils # (A) 0.00 10*3/uL (0.04-0.35); Eosinophils % (A) 0.0 %; HCT 37.0 % (37.2-46.3); HGB 12.8 g/dL (12.0-15.0); Lymphocytes # (A) 0.96 10*3/uL (0.90-5.00); Lymphocytes % (A) 10.4 %; MCH 32.7 pg (27.0-32.0); MCHC 34.6 g/dL (32.0-37.0); MCV 94.4 fL (80.0-97.0); Monocytes # (A) 0.61 10*3/uL (0.20-1.00); Monocytes % (A) 6.6 %; Neutrophils # (A) 7.61 10*3/uL (1.80-7.70); Neutrophils % (A) 82.3 %; Platelet Count 215 10*3/uL (140-440); RBC 3.92 10*6/uL (4.10-5.20); RDW 11.9 % (11.5-14.5); WBC 9.25 10*3/uL (4.50-10.00)
[2025-03-20] MEDS: METOCLOPRAMIDE 5 MG/ML 2 ML VIAL IVP STA (15:45)
[2025-03-20] MEDS: HYOSCYAMINE SULFATE 0.125 MG TAB SL STA (16:08)
[2025-03-20 16:43] LABS: Barbiturate Screen,Urine Not Detected (NotDetected); Benzodiazepines Screen,Urine Not Detected (NotDetected); Opiate Screen,Urine Detected (NotDetected); Oxycodone Screen, Urine Not Detected (NotDetected); Phencyclidine Screen,Urine Not Detected (NotDetected); Tricyclic Antidepressant,Urine Not Detected (NotDetected); Urn Cannabinoid Scrn Detected (NotDetected)
[2025-03-20] MEDS: traMADol 50 MG STARTER PACK 3 TAB BTL PO STA (17:38)
== END 2025-03-20 17:57 | disposition home or self-care (01) ==
LOC: EC 13:29
DX: R10.11 Right upper quadrant pain (principal); R11.2 Nausea with vomiting, unspecified; K21.9 Gastro-esophageal reflux disease without esophagitis; F17.290 Nicotine dependence, other tobacco product, uncomplicated; Z88.0 Allergy status to penicillin; Z88.5 Allergy status to narcotic agent; Z91.09 Other allergy status, other than to drugs and biological substances; Z91.040 Latex allergy status
CPT/HCPCS: 36415; 80053; 82150; 83605; 83690; 83735; 85025; 84703; 80306; 99285; 96374; 96375; 96376; 96361; J2270; J0780; J2765; J2470